=== PATIENT | female | born 1935 | race Caucasian/White ===

== ENCOUNTER 2019-04-14 10:50 | Inpatient (IN) | payer BC, MEDICARE ==
[2019-04-14] VITALS (10 sets, daily range): BP systolic 127–160; BP diastolic 41–58
[~2019-04-14] VITALS: Ht 170.2 cm; Wt 86.0 kg
[2019-04-14] MEDS ORDERED: TRAN2TAB16 PO (12:03)
[2019-04-14] MEDS ORDERED: OSEL75CA PO (12:03)
[2019-04-14] MEDS ORDERED: METO50TA6 PO (12:03)
[2019-04-14] MEDS ORDERED: VALS320T2 PO (12:03)
[2019-04-14] MEDS ORDERED: WARF3TAB50 PO (12:03)
[2019-04-14] MEDS ORDERED: AZIT250T PO (12:03)
[2019-04-14] MEDS ORDERED: AMLO10TA4 PO (12:03)
[2019-04-14] MEDS ORDERED: SIMV20TA18 PO (12:03)
[2019-04-14 12:17] LABS: BASO # 0.1 x10^3/uL (0.0-0.2); BASO % 2 % (0-3); EOS # 0.1 x10^3/uL (0.0-0.7); EOS % 1 % (0-3); HEMATOCRIT 26.1 % (36.0-47.0); HEMOGLOBIN 7.4 g/dL (12.0-15.5); LYMPH # 1.1 x10^3/uL (1.0-4.8); LYMPH % 22 % (24-48); MEAN CORPUSCULAR HEMOGLOBIN 19 pg (25-35); MEAN CORPUSCULAR HGB CONC 28 g/dL (31-37); MEAN CORPUSCULAR VOLUME 67 fL (79-100); MONO # 0.8 x10^3/uL (0.0-1.1); MONO % 16 % (0-9); NEUT # 2.9 x10^3uL (1.8-7.7); NEUT % 59 % (31-73); PLATELET COUNT 209 x10^3/uL (140-400); RED CELL DISTRIBUTION WIDTH 19.4 % (11.5-14.5); WHITE BLOOD COUNT 4.9 x10^3/uL (4.0-11.0)
[2019-04-14 12:41] LABS: ALBUMIN/GLOBULIN RATIO 0.7 (1.0-1.7); CALCIUM 9.9 mg/dL (8.5-10.1); CREATININE 1.6 mg/dL (0.6-1.0); GFR 30.8; POTASSIUM 4.5 mmol/L (3.5-5.1); TOTAL BILIRUBIN 0.8 mg/dL (0.2-1.0); TOTAL PROTEIN 7.1 g/dL (6.4-8.2)
[2019-04-14 13:35] LABS: ANISOCYTOSIS SLIGHT; HYPOCHROMIA MARKED; PLT ESTIMATE ADEQUATE (ADEQUATE); POLYCHROMASIA PRESENT
[2019-04-14 13:36] LABS: MICROCYTOSIS MOD; OVALOCYTES PRESENT; SCHISTOCYTES OCC; TARGET CELLS PRESENT
[2019-04-14 13:51] LABS: SEDIMENTATION RATE 37 (0-25)
--- NOTE | 2019-04-14 13:57 | NUR ---
NURSING NOTE ADMIT PT DIRECT ADMIT TO ROOM [address]UÑEZ WITH THE DX OF ANEMIA AND HEART FAILURE. PT HAD LABS DONE IN THE OFFICE ON 04-13-2019 AND WAS TOLD TO COME TO THE HOSPITAL. PT IS X1 STAND BY ASSIST. PT REPORTS THAT SHE LIVES HOME ALONE BUT HAS A FRIEND MIKE THAT CHECKS ON HER. ALSO HAS A DAUGHTER LIZANDRO THAT SHE SPEAKS WITH. PT HEART RATE WAS BACK AND FORTH 30'S AND 40'S WHEN SHE GOT TO THE FLOOR. HIGHEST HAS BEEN ABOUT 58. PT CURRENTLY 46 ON THE MONITOR. SPOKE WITH DR NUÑEZ. EKG, ECHO, AND ORTHOSTATICS ORDERED. PT IS TO BE TRANSFERRED TO ICU FOR CLOSER MONITORING. PT TAKES A BETA-GIRISH AND IS NONCOMPLIANT WITH HER FOLLOW UP CARE. MEDS HELD AT THIS TIME PER DR NUÑEZ. PT BLOOD PRESSURE IS HIGH. ORDER FOR HYDRALAZINE OBTAINED. REPORT GIVEN TO PERLA MALAVE. PT CURRENTLY BEING MOVED TO ICU FOR CLOSER MONITORING. PERLA SILVA.
--- NOTE | 2019-04-14 14:36 | EKG ---
[address] [address] Test Date: 2019-04-14 Test Time: 14:16:26 Pat Name: THALIA WOODWARD Department: Room: 123 A Gender: F Foundry Worker General: Aletha : 1935 Requested By: JERICHO NUÑEZ Order Number: [id number] Reading MD: Measurements Intervals Start Rate: 54 P: MN: QRS: 132 QRSD: 84 T: 166 QT: 496 QTc: 477 Interpretive Statements IRREGULAR RHYTHM, NO P-WAVE FOUND ABNORMAL RIGHT AXIS DEVIATION QRS(T) CONTOUR ABNORMALITY CONSISTENT WITH HIGH LATERAL INFARCT AGE UNDETERMINED ABNORMAL ECG RI6.02 No previous ECG available for comparison
--- NOTE | 2019-04-14 14:37 | NUR ---
NURSING NOTE CONSULT CONSULT TO DR PEREZ, HE IS HERE AND SPOKE WITH HIM. PERLA SILVA.
[2019-04-14] MEDS ORDERED: FUROSEMIDE 40 MG/4 ML VIAL IVP ONE (15:00)
--- NOTE | 2019-04-14 15:00 | NUR ---
Pt was transferred over from [address] [place] [address] to ICU, for bradycardia, CHF, anemia, R/o influenza. Pt saw Dr. Gonzales in his office yesterday was sob, weak, fatigue, he did FLU swab that is still pending, gave scripts for Tamiflu and Zithromax (neither have been started by patient). This RN called Dr. Gonzales's office to inquire about tamiflu. Pt does not present with any signs or symptoms of the FLU at this time. Dr. Gonzales requesting to start Tamiflu and Zithromax. Pt requires droplet precautions until we get results. Pt is in heart failure, pt has 4+ edema up to her thighs. Pt only sees Dr. Gonzales 1 time per year, but does get her coumadin level checked every month. Dr. William here to see pt. Reviewed poc with pt, she is in agreement. She verbalizes her worry about her edema. Will proceed with poc, will CTM
--- NOTE | 2019-04-14 15:04 | CONS ---
DATE OF CONSULTATION: 04/14/2019 REASON FOR CONSULTATION: Heart failure. HISTORY OF PRESENT ILLNESS: The patient is an 83-year-old woman with extremely difficult history. She is currently unclear as to the reason for her admission and most of the information has been gathered from chart review and her medication list. She apparently was in her usual state of health and went to the primary care physician's office for routine INR check and that she was advised to seek medical attention because of her heart failure symptoms. The patient currently denies any chest pain or dyspnea. She has lower extremity edema. She has no syncope or palpitations. She reports that she is on metoprolol therapy. She had some bradycardia while at the PCP's office and Cardiology was also asked to evaluate her regarding this. PAST MEDICAL HISTORY: 1. Presumed atrial fibrillation as she is currently atrial fibrillation on her EKG, on anticoagulation with Coumadin. 2. 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 Nonetheless, she is on anticoagulation with warfarin. 3. Hypertension. 4. Presumed chronic kidney disease with baseline creatinine 1.6. 5. Dyslipidemia. SOCIAL HISTORY: The patient has one daughter who lives in [place]. She currently denies any alcohol, tobacco or illicit drug use. FAMILY HISTORY: Noncontributory. ALLERGIES: CODEINE. CURRENT CARDIOVASCULAR MEDICATIONS: 1. Losartan 100 mg daily. 2. Lisinopril 20 mg daily. 3. Amlodipine 10 mg daily. 4. She has currently been started on Tamiflu. PHYSICAL EXAMINATION: VITAL SIGNS: Afebrile, 53, 18, 160/56, 93% on room air. GENERAL: She is alert and oriented to person, place and time. NEUROLOGIC: No focal deficits. MUSCULOSKELETAL: No obvious trauma. CARDIAC: Irregularly irregular without any obvious murmurs, rubs or gallops. LUNGS: Decreased breath sounds at the bases. LOWER EXTREMITIES: Significant 2+ pitting edema. DIAGNOSTIC STUDIES: Hemoglobin is decreased at 7.4. Creatinine 1.6. Troponin negative x 1. BNP elevated at 5586. INR 2.7. D-dimer negative. IMAGING: Currently pending. EKG demonstrates atrial fibrillation with a slow ventricular response at a heart rate of 58. IMPRESSION: 1. Probable acute on chronic diastolic or systolic heart failure. 2. Probable chronic kidney disease. 3. Chronic atrial fibrillation with a slow ventricular response without any current indications for pacemaker implantation. RECOMMENDATIONS: 1. Would stop her lisinopril and continue losartan only to avoid any further renal injury. 2. We will hold her metoprolol therapy for now and probably reinitiate at half dose tomorrow at 12.5 mg p.o. b.i.d. 3. Continue hydralazine, up titrate as blood pressure allows. 4. Unclear why she has been on the Tamiflu dosing, but defer to primary care physician. 5. Plan for echocardiogram and initiation of diuresis with Lasix. 6. Ok to hold warfarin. Consider outpt referral for watchman device given anemia. Thank you for this consultation. HEMALATHA PEREZ MD DR: CLIFFORD/aydin JOB#: [id number] / [id number] VIOLET
[2019-04-14] MEDS: hydrALAZINE 25 MG TABLET PO SCH ×2 (15:50→21:52)
--- NOTE | 2019-04-14 16:05 | RAD ---
AP and Lateral Views of the Chest 04/14/2019 11:57 AM Indication: Heart failure, shortness of breath Comparison: None Findings: Probable calcified granuloma noted in the right middle lobe. There are small bilateral pleural effusions left greater than right. Underlying atelectasis is present. Central vascular congestion and mild interstitial thickening, are present. No pneumothorax. No acute osseous changes are seen. IMPRESSION: Central vascular congestion, cardiomegaly, mild interstitial thickening, and small bilateral pleural effusions. Findings are consistent with provided history congestive heart failure. Electronically signed by: Jerzy Harris MD (04/14/2019 4:02 PM) [id number]
[2019-04-14] MEDS ORDERED: AZITHROMYCIN 250 MG TABLET. PO ONE (16:15)
[2019-04-14 17:52] LABS: FECAL OB PT NEGATIVE (NEG)
[2019-04-14 18:06] LABS: COLOR,URINE STRAW
[2019-04-14 18:07] LABS: BACTERIA,URINE MANY /HPF (0-FEW); BILIRUBIN,URINE NEG (NEG); CLARITY,URINE HAZY; GLUCOSE,URINE NEG (NEG); NITRITE,URINE NEG (NEG); RBC,URINE 0 /HPF (0-2); SQUAMOUS EPITHELIAL CELL,UR OCC /LPF; UROBILINOGEN,URINE 0.2 mg/dL (0.2 mg/dL)
[2019-04-14] MEDS ORDERED: LORazepam 0.5 MG TABLET PO PRN (18:30)
[2019-04-14] MEDS ORDERED: ACETAMINOPHEN 500 MG TABLET PO PRN (18:30)
[2019-04-14] MEDS ORDERED: OSELTAMIVIR 75 MG CAPSULE PO SCH (21:00)
[2019-04-14] MEDS: OSELTAMIVIR 30 MG CAPSULE PO SCH (21:51)
[2019-04-14] MEDS ORDERED: METHYL SALICYLATE/MENTHOL TOPICAL OINTMENT 57GM TUBE. TP PRN (22:00)
[2019-04-15] VITALS (25 sets, daily range): BP systolic 115–151; BP diastolic 40–69
[2019-04-15 02:06] LABS: HEMOGLOBIN A1C 5.8 % (4.8-5.6)
[2019-04-15 06:44] LABS: BASO # 0.1 x10^3/uL (0.0-0.2); BASO % 1 % (0-3); EOS # 0.2 x10^3/uL (0.0-0.7); EOS % 3 % (0-3); HEMATOCRIT 22.5 % (36.0-47.0); LYMPH # 1.7 x10^3/uL (1.0-4.8); LYMPH % 30 % (24-48); MEAN CORPUSCULAR HEMOGLOBIN 19 pg (25-35); MEAN CORPUSCULAR HGB CONC 30 g/dL (31-37); MEAN CORPUSCULAR VOLUME 66 fL (79-100); MONO # 0.9 x10^3/uL (0.0-1.1); MONO % 16 % (0-9); NEUT # 2.9 x10^3uL (1.8-7.7); NEUT % 51 % (31-73); PLATELET COUNT 164 x10^3/uL (140-400); RED BLOOD COUNT 3.42 x10^6/uL (3.50-5.40); RED CELL DISTRIBUTION WIDTH 19.1 % (11.5-14.5); WHITE BLOOD COUNT 5.7 x10^3/uL (4.0-11.0)
[2019-04-15 06:51] LABS: CALCIUM 9.4 mg/dL (8.5-10.1); CREATININE 1.6 mg/dL (0.6-1.0); GFR 30.8; POTASSIUM 4.3 mmol/L (3.5-5.1)
[2019-04-15 06:54] LABS: HEMOGLOBIN 6.6 g/dL (12.0-15.5)
[2019-04-15] MEDS: FERROUS SULFATE 325 MG TABLET. PO SCH (08:09)
[2019-04-15] MEDS: AZITHROMYCIN 250 MG TABLET. PO SCH (08:10)
[2019-04-15] MEDS: LOSARTAN 50 MG TABLET. PO SCH (08:10)
[2019-04-15] MEDS: hydrALAZINE 25 MG TABLET PO SCH ×3 (08:11→21:00)
[2019-04-15] MEDS: amLODIPine BESYLATE 10 MG TABLET PO SCH (08:11)
--- NOTE | 2019-04-15 08:14 | PDOC ---
CARDIO Progress Notes Date & Time Date of Service DATE: 04/15/19 TIME: 08:08 Time of Evaluation 08:08 Subjective Notes No chest pain, dizziness, diaphoresis. Feels tires, fatigued Vitals Vitals Vital Signs Date Time Temp Pulse Resp B/P (MAP) Pulse Ox O2 Delivery O2 Flow Rate FiO2 04/15/19 07:09 50 140/41 (74) 94 04/15/19 06:00 97.8 20 Nasal Cannula 2.0 Weight Weight [ ] Input and Output I.O. Intake and Output 04/15/19 07:00 Intake Total 980 ml Output Total 3101 ml Balance -2121 ml Intake Oral 980 ml Output Urine Total 3100 ml Stool Total 1 ml # Voids 1 Laboratory Labs Laboratory Tests Test 04/14/19 12:08 04/14/19 16:40 04/14/19 17:35 04/15/19 05:55 White Blood Count 4.9 x10^3/uL (4.0-11.0) 5.7 x10^3/uL (4.0-11.0) Red Blood Count 3.90 x10^6/uL (3.50-5.40) 3.42 x10^6/uL (3.50-5.40) Hemoglobin 7.4 g/dL (12.0-15.5) 6.6 g/dL (12.0-15.5) Hematocrit 26.1 % (36.0-47.0) 22.5 % (36.0-47.0) Mean Corpuscular Volume 67 fL (79-100) 66 fL (79-100) Mean Corpuscular Hemoglobin 19 pg (25-35) 19 pg (25-35) Mean Corpuscular Hemoglobin Concent 28 g/dL (31-37) 30 g/dL (31-37) Red Cell Distribution Width 19.4 % (11.5-14.5) 19.1 % (11.5-14.5) Platelet Count 209 x10^3/uL (140-400) 164 x10^3/uL (140-400) Neutrophils (%) (Auto) 59 % (31-73) 51 % (31-73) Lymphocytes (%) (Auto) 22 % (24-48) 30 % (24-48) Monocytes (%) (Auto) 16 % (0-9) 16 % (0-9) Eosinophils (%) (Auto) 1 % (0-3) 3 % (0-3) Basophils (%) (Auto) 2 % (0-3) 1 % (0-3) Neutrophils # (Auto) 2.9 x10^3uL (1.8-7.7) 2.9 x10^3uL (1.8-7.7) Lymphocytes # (Auto) 1.1 x10^3/uL (1.0-4.8) 1.7 x10^3/uL (1.0-4.8) Monocytes # (Auto) 0.8 x10^3/uL (0.0-1.1) 0.9 x10^3/uL (0.0-1.1) Eosinophils # (Auto) 0.1 x10^3/uL (0.0-0.7) 0.2 x10^3/uL (0.0-0.7) Basophils # (Auto) 0.1 x10^3/uL (0.0-0.2) 0.1 x10^3/uL (0.0-0.2) Platelet Estimate Adequate (ADEQUATE) Polychromasia Present Hypochromasia Marked Anisocytosis Slight Microcytosis Mod Macrocytosis Present Target Cells Present Ovalocytes Present Schistocytes Occ Erythrocyte Sedimentation Rate 37 (0-25) Prothrombin Time 28.2 SEC (9.4-11.4) Prothromb Time International Ratio 2.7 (0.9-1.1) D-Dimer (Delia) 0.40 mg/L (0.00-0.50) Sodium Level 144 mmol/L (136-145) 143 mmol/L (136-145) Potassium Level 4.5 mmol/L (3.5-5.1) 4.3 mmol/L (3.5-5.1) Chloride Level 111 mmol/L (98-107) 110 mmol/L (98-107) Carbon Dioxide Level 23 mmol/L (21-32) 25 mmol/L (21-32) Anion Gap 10 (6-14) 8 (6-14) Blood Urea Nitrogen 29 mg/dL (7-20) 29 mg/dL (7-20) Creatinine 1.6 mg/dL (0.6-1.0) 1.6 mg/dL (0.6-1.0) Estimated GFR (Cockcroft-Gault) 30.8 30.8 BUN/Creatinine Ratio 18 (6-20) Glucose Level 95 mg/dL (70-99) 79 mg/dL (70-99) Hemoglobin A1c 5.8 % (4.8-5.6) Lactic Acid Level 1.2 mmol/L (0.4-2.0) Calcium Level 9.9 mg/dL (8.5-10.1) 9.4 mg/dL (8.5-10.1) Total Bilirubin 0.8 mg/dL (0.2-1.0) Aspartate Amino Transf (AST/SGOT) 21 U/L (15-37) Alanine Aminotransferase (ALT/SGPT) 23 U/L (14-59) Alkaline Phosphatase 107 U/L (46-116) Creatine Kinase 36 U/L (26-192) Troponin I Quantitative < 0.017 ng/mL (0-0.055) UG-Ket-R-Type Natriuretic Peptide 5586 pg/mL (0-449) Total Protein 7.1 g/dL (6.4-8.2) Albumin 3.0 g/dL (3.4-5.0) Albumin/Globulin Ratio 0.7 (1.0-1.7) Urine Collection Type Unknown Urine Color Straw Urine Clarity Hazy Urine pH 6.0 Urine Specific [place] 1.015 Urine Protein Neg (NEG-TRACE) Urine Glucose (UA) Neg mg/dL (NEG) Urine Ketones (Stick) Neg mg/dL (NEG) Urine Blood Neg (NEG) Urine Nitrite Neg (NEG) Urine Bilirubin Neg (NEG) Urine Urobilinogen Dipstick 0.2 mg/dL (0.2 mg/dL) Urine Leukocyte Esterase Mod (NEG) Urine RBC 0 /HPF (0-2) Urine WBC 11-20 /HPF (0-4) Urine Squamous Epithelial Cells Occ /LPF Urine Bacteria Many /HPF (0-FEW) Stool Occult Blood Negative (NEG) Physical Exams HEENT: Neck Supple W Full Motion Chest: Symmetric Lungs: Other (bibasilar crackles ) Heart: S1S2, irregularly irregular Abdomen: Soft N/T Extremities: Other (trace bilateral LE edema) Neurology: alert, follow commands Assessment Assessment 1. Acute on chronic CHF 2. AFIB; with slow ventricular response. Metoprolol has been held 3. Anemia; hgb drift to 6.6. No obvious bleeding 4. 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 5. Hypertension. 6. CKD: Cr stable 7. Dyslipidemia. 8. pulm HTN PAP 77 mmHg 9. Moderate to severe TR and moderate MR posteriorly directed. Recommendations To be transfused Lasix following transfusion Ok to hold warfarin given anemia. Consider outpt referral for watchman device given anemia. Outpatient event monitor Will arrange follow up in our office. MANA GAY APRN Apr 15, 2019 08:13
[2019-04-15] MEDS: OSELTAMIVIR 30 MG CAPSULE PO SCH ×2 (08:43→21:21)
--- NOTE | 2019-04-15 08:45 | NUR ---
NURSING NOTE PT WAS IN HER BED THIS AM UPON ASSESSMENT AND MEDICATION ADMINISTRATION. PT WAS A&O THIS AM. PT HAS PITTING EDEMA IN HER BLE. PT IS FOLLOW BY CARDIOLOGY AND WAS SEEN THIS AM BY MANA AND BEING TREATED WITH LASIX IV. ECHO IS ORDERED. PT WAS PUT ON 2 L OF OXYGEN AT NIGHT TO MAINTAIN OXYGEN SATURATION IN 90'S. TOOK PT OFF THIS AM AND CURRENTLY 93% RA. PT LABS THIS AM CAME BACK CRITICAL HGB AT 6.[address] NUÑEZ NOTIFIED BY NIGHT RN. 1 UNIT OF PRBC ORDERED. PT EDUCATED ABOUT ANEMIA AND NUTRITION IMPORTANCE WELL HEALTHY DIET. PT SPOKE WITH DR NUÑEZ THIS AM STATED THAT SHE DOES NOT EAT HEALTHY AND MOSTLY EATS JUNK FOOD. PHONED DR NUÑEZ OFFICE TO CHECK ON FLU SWAB RESULTS, LAX[facility] WILL CALL BACK WITH RESULTS. WILL CONTINUE TO MONITOR. PERLA SILVA.
[2019-04-15] MEDS ORDERED: LISINOPRIL 20 MG TABLET PO SCH (09:00)
--- NOTE | 2019-04-15 09:57 | NUR ---
NURSING NOTE CONSULT SPOKE WITH PT DAUGHTER WHO VOICED CONCERN FOR PT'S ANXIETY LEVEL STATING "SHE IS ALWAYS WOUND UP AND WORRIED ABOUT EVERYTHING". SPOKE WITH DR NUÑEZ ABOUT CONCERNS, CONSULT FOR DR MARISA ABARCA AND TREAT FAXED. PERLA SILVA.
--- NOTE | 2019-04-15 11:26 | NUR ---
NURSING NOTE BLOOD BLOOD TRANSFUSION STARTED AT 0910. TUBING PRIMED WITH NORMAL SALINE & THEN PRIMED WITH BLOOD. TRANSFUSION STARTED AT 25ML/HR, PT MONITORED CLOSELY X15 MIN. NO REACTION NOTED. TRANSFUSION INCREASED TO 125MG/HR. VITALS MONITORED. SEE TRANSFUSION. NO COMPLICATIONS. PERLA SILVA.
[2019-04-15] MEDS ORDERED: FUROSEMIDE 40 MG/4 ML VIAL IVP ONE (11:45)
--- NOTE | 2019-04-15 11:46 | NUR ---
NURSING NOTE LASIX PER MANA, GIVE PT 40 MG LASIX IVP AFTER BLOOD TRANSFUSION. ORDERS PUT IN. PERLA SILVA.
--- NOTE | 2019-04-15 12:25 | NUR ---
NURSING NOTE INFLUENZA RESULTS POSITIVE PT HAD SWAB DONE IN PHYSICIAN OFFICE FOR FLU ON 04/13/2019. RESULTS FAXED TO US TODAY 04/15/2019 ARE POSITIVE. PT IS ALREADY IN ISOLATION AND BEING TREATED WITH TAMIFLU. WILL CONTINUE TO MONITOR. PERLA SILVA.
--- NOTE | 2019-04-15 12:53 | NUR ---
IP: patient has + flu test, requires droplet precautions until treatment for 5 days and no fever x 24 hours, whichever is longer.
[2019-04-15 13:33] LABS: BASO # 0.1 x10^3/uL (0.0-0.2); BASO % 1 % (0-3); EOS # 0.1 x10^3/uL (0.0-0.7); EOS % 1 % (0-3); LYMPH # 1.2 x10^3/uL (1.0-4.8); LYMPH % 19 % (24-48); MEAN CORPUSCULAR HEMOGLOBIN 21 pg (25-35); MEAN CORPUSCULAR HGB CONC 30 g/dL (31-37); MEAN CORPUSCULAR VOLUME 68 fL (79-100); MONO % 16 % (0-9); NEUT # 4.1 x10^3uL (1.8-7.7); NEUT % 63 % (31-73); PLATELET COUNT 176 x10^3/uL (140-400); RED BLOOD COUNT 3.94 x10^6/uL (3.50-5.40); RED CELL DISTRIBUTION WIDTH 21.5 % (11.5-14.5); WHITE BLOOD COUNT 6.5 x10^3/uL (4.0-11.0)
[2019-04-15 13:36] LABS: HEMATOCRIT 26.9 % (36.0-47.0); HEMOGLOBIN 8.1 g/dL (12.0-15.5)
--- NOTE | 2019-04-15 14:05 | CARD ---
MR#: [id number] Date of Study: 04/15/2019 Ordering Physician: HEMALATHA PEREZ, Referring Physician: HEMALATHA PEREZ, Tech: Blossom Byrnes APPROVED REPORT EXAM: Two-dimensional and M-mode echocardiogram with Doppler and color Doppler. Other Information Quality : AverageHR: 55bpm INDICATION Congestive Heart Failure RISK FACTORS Hypertension Hyperlipidemia 2D DIMENSIONS RVDd4.7 (2.9-3.5cm)Left Atrium(2D)5.2 (1.6-4.0cm) IVSd0.7 (0.7-1.1cm)Aortic Root(2D)2.9 (2.0-3.7cm) LVDd6.0 (3.9-5.9cm)LVOT Diameter1.9 (1.8-2.4cm) PWd1.0 (0.7-1.1cm)LVDs3.6 (2.5-4.0cm) FS (%) 40.5 %SV126.8 ml LVEF(%)70.4 (>50%) Aortic Valve AoV Peak Lonnie.192.2cm/sAoV VTI41.6cm AO Peak GR.14.8mmHgLVOT Peak Lonnie.137.7cm/s LVOT VTI 35.00cmAO Mean GR.7mmHg MEGHAN (VMAX)2.21ae1ZXN (VTI)2.35cm2 Mitral Valve MV E Hgnnbnwb130.7cm/sMV E Peak Gr.128mmHg MV DECEL [id number] A Dtbmfkfm80.4cm/s MV E Mean Gr.4mmHgE/A Ratio2.2 Pulmonary Valve PV Peak Rwimoawv609.3cm/sPV Peak Grad.5mmHg Tricuspid Valve TR P. Raxsmjso614ec/sRAP DCEMEXUL41xjZx TR Peak Gr.76mvObBXMY65wsOh Pulmonary Vein S1 Bjtgrtvl91.5cm/sD2 Gqmnjkfj14.1cm/s LEFT VENTRICLE The left ventricle is normal size. There is normal left ventricular wall thickness. The left ventricu lar systolic function is normal. The Ejection Fraction is 60%. There is normal LV segmental wall timmy on. RIGHT VENTRICLE The right ventricle is mildly dilated. There is normal right ventricular wall thickness. The right ve ntricular systolic function is normal. ATRIA The left atrium is moderately dilated. The right atrium is moderately dilated. The interatrial septum is intact with no evidence for an atrial septal defect or patent foramen ovale as noted on 2-D or Do ppler imaging. AORTIC VALVE The aortic valve is normal in structure and function. Doppler and Color Flow revealed trace aortic re gurgitation. There is no significant aortic valvular stenosis. MITRAL VALVE The mitral valve is normal in structure and function. There is no evidence of mitral valve prolapse. There is no mitral valve stenosis. Doppler and Color-flow revealed moderate eccentric posteriorily di rected mitral regurgitation. TRICUSPID VALVE The tricuspid valve is normal in structure and function. Doppler and Color Flow revealed moderate to severe tricuspid regurgitation with an estimated PAP of 77 mmHg. There is no tricuspid valve stenosis . PULMONIC VALVE The pulmonary valve is normal in structure and function. Doppler and Color Flow revealed trace pulmon ic valvular regurgitation. GREAT VESSELS The aortic root is normal in size. The ascending aorta is normal in size. The IVC is dilated and hoa apses <50%. PERICARDIAL EFFUSION There is a small circumferential pericardial effusion. Critical Notification Critical Value: No <Conclusion> The left ventricular systolic function is normal. The Ejection Fraction is 60%. There is normal LV segmental wall motion. Moderate eccentric posteriorily directed mitral regurgitation. Moderate to severe tricuspid regurgitation with an estimated PAP of 77 mmHg. There is a small circumferential pericardial effusion. Signed by : Mir Jones, Electronically Approved : 04/15/2019 14:05:28
[2019-04-16] VITALS (12 sets, daily range): BP systolic 132–160; BP diastolic 42–72
--- NOTE | 2019-04-16 03:57 | NUR ---
Pt with frequent 5-10 second periods of apnea while sleeping. Pt wearing 2L O2 via NC to maintain sats >90% throughout noc. Pt denies history of sleep apnea or prior sleep study.
[2019-04-16 06:31] LABS: BASO # 0.1 x10^3/uL (0.0-0.2); BASO % 1 % (0-3); EOS # 0.2 x10^3/uL (0.0-0.7); EOS % 3 % (0-3); HEMATOCRIT 24.9 % (36.0-47.0); HEMOGLOBIN 7.4 g/dL (12.0-15.5); LYMPH # 1.4 x10^3/uL (1.0-4.8); LYMPH % 21 % (24-48); MEAN CORPUSCULAR HEMOGLOBIN 21 pg (25-35); MEAN CORPUSCULAR HGB CONC 30 g/dL (31-37); MEAN CORPUSCULAR VOLUME 69 fL (79-100); MONO # 1.1 x10^3/uL (0.0-1.1); MONO % 17 % (0-9); NEUT # 3.8 x10^3uL (1.8-7.7); NEUT % 58 % (31-73); PLATELET COUNT 141 x10^3/uL (140-400); RED BLOOD COUNT 3.62 x10^6/uL (3.50-5.40); RED CELL DISTRIBUTION WIDTH 21.7 % (11.5-14.5); WHITE BLOOD COUNT 6.5 x10^3/uL (4.0-11.0)
[2019-04-16 06:41] LABS: ALBUMIN 2.6 g/dL (3.4-5.0); ALBUMIN/GLOBULIN RATIO 0.7 (1.0-1.7); CREATININE 1.5 mg/dL (0.6-1.0); GFR 33.2; POTASSIUM 4.2 mmol/L (3.5-5.1); TOTAL PROTEIN 6.1 g/dL (6.4-8.2)
--- NOTE | 2019-04-16 07:45 | PN ---
DATE: 04/15/2019 SUBJECTIVE: An 83-year-old female in with congestive heart failure and anemia, iron deficiency. The patient is resting fairly comfortably, making fairly good progress, seems a little bit better with diuresis. The patient's ejection fraction looks good of roughly 60% and so that is holding its own. OBJECTIVE: GENERAL: Otherwise, the patient is very talkative, very anxious, bipolar-like. VITAL SIGNS: Blood pressure 130/40, respiratory rate 23, pulse is up in the 60s and temperature is afebrile, 95% oxygen saturation. The patient is alert and oriented, much more active. She has had another unit of packed RBCs and hemoglobin came up to 8.1 and 26, otherwise will continue to be monitored. 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 She may need to be taken off that if she has any type of bleeding problem, although so far, her fecal stools have been negative. Her BUN and creatinine are 29 and 1.6. A1c of 5.8. TSH was basically stable. The patient did have an elevated BNP. In any case, the patient is making good progress overall and will continue to be monitored. The patient is alert and oriented. LUNGS: Diminished, some rales in the bases, but clearer than they have been. CARDIOVASCULAR: Regular sinus rhythm. ABDOMEN: Soft. EXTREMITIES: No clubbing, cyanosis, +1 to 2 pitting edema. NEUROLOGIC: Alert and oriented. There is some memory deficits noted with this patient also has a strong situation of a problem with memory and some forms of anxiety. 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 PLAN: The patient may need to go ahead and give her another avenue for possible blood clots, if she continues with her atrial fibrillation, so as not to be on a blood thinner and make further evaluation along with Cardiology. JERICHO NUÑEZ MD DR: ISIDRO/aydin JOB#: [id number] / [id number]
--- NOTE | 2019-04-16 08:13 | PDOC ---
CARDIO Progress Notes Date & Time Date of Service DATE: 04/16/19 TIME: 08:13 Time of Evaluation 08:13 Subjective Notes No chest pain, palpitations, dizziness, diaphoresis Vitals Vitals Vital Signs Date Time Temp Pulse Resp B/P (MAP) Pulse Ox O2 Delivery O2 Flow Rate FiO2 04/16/19 07:10 98.4 52 18 135/45 (75) 94 Nasal Cannula 2.0 Weight Weight [ ] Input and Output I.O. Intake and Output 04/16/19 07:00 Intake Total 890 ml Output Total 4200 ml Balance -3310 ml Intake Oral 890 ml Output Urine Total 4200 ml Laboratory Labs Laboratory Tests Test 04/14/19 12:08 04/14/19 16:40 04/14/19 17:35 04/15/19 05:55 White Blood Count 4.9 x10^3/uL (4.0-11.0) 5.7 x10^3/uL (4.0-11.0) Red Blood Count 3.90 x10^6/uL (3.50-5.40) 3.42 x10^6/uL (3.50-5.40) Hemoglobin 7.4 g/dL (12.0-15.5) 6.6 g/dL (12.0-15.5) Hematocrit 26.1 % (36.0-47.0) 22.5 % (36.0-47.0) Mean Corpuscular Volume 67 fL (79-100) 66 fL (79-100) Mean Corpuscular Hemoglobin 19 pg (25-35) 19 pg (25-35) Mean Corpuscular Hemoglobin Concent 28 g/dL (31-37) 30 g/dL (31-37) Red Cell Distribution Width 19.4 % (11.5-14.5) 19.1 % (11.5-14.5) Platelet Count 209 x10^3/uL (140-400) 164 x10^3/uL (140-400) Neutrophils (%) (Auto) 59 % (31-73) 51 % (31-73) Lymphocytes (%) (Auto) 22 % (24-48) 30 % (24-48) Monocytes (%) (Auto) 16 % (0-9) 16 % (0-9) Eosinophils (%) (Auto) 1 % (0-3) 3 % (0-3) Basophils (%) (Auto) 2 % (0-3) 1 % (0-3) Neutrophils # (Auto) 2.9 x10^3uL (1.8-7.7) 2.9 x10^3uL (1.8-7.7) Lymphocytes # (Auto) 1.1 x10^3/uL (1.0-4.8) 1.7 x10^3/uL (1.0-4.8) Monocytes # (Auto) 0.8 x10^3/uL (0.0-1.1) 0.9 x10^3/uL (0.0-1.1) Eosinophils # (Auto) 0.1 x10^3/uL (0.0-0.7) 0.2 x10^3/uL (0.0-0.7) Basophils # (Auto) 0.1 x10^3/uL (0.0-0.2) 0.1 x10^3/uL (0.0-0.2) Platelet Estimate Adequate (ADEQUATE) Polychromasia Present Hypochromasia Marked Anisocytosis Slight Microcytosis Mod Macrocytosis Present Target Cells Present Ovalocytes Present Schistocytes Occ Erythrocyte Sedimentation Rate 37 (0-25) Prothrombin Time 28.2 SEC (9.4-11.4) Prothromb Time International Ratio 2.7 (0.9-1.1) D-Dimer (Delia) 0.40 mg/L (0.00-0.50) Sodium Level 144 mmol/L (136-145) 143 mmol/L (136-145) Potassium Level 4.5 mmol/L (3.5-5.1) 4.3 mmol/L (3.5-5.1) Chloride Level 111 mmol/L (98-107) 110 mmol/L (98-107) Carbon Dioxide Level 23 mmol/L (21-32) 25 mmol/L (21-32) Anion Gap 10 (6-14) 8 (6-14) Blood Urea Nitrogen 29 mg/dL (7-20) 29 mg/dL (7-20) Creatinine 1.6 mg/dL (0.6-1.0) 1.6 mg/dL (0.6-1.0) Estimated GFR (Cockcroft-Gault) 30.8 30.8 BUN/Creatinine Ratio 18 (6-20) Glucose Level 95 mg/dL (70-99) 79 mg/dL (70-99) Hemoglobin A1c 5.8 % (4.8-5.6) Lactic Acid Level 1.2 mmol/L (0.4-2.0) Calcium Level 9.9 mg/dL (8.5-10.1) 9.4 mg/dL (8.5-10.1) Iron Level 11 ug/dL (50-170) Total Iron Binding Capacity 365 ug/dL (250-450) Iron Saturation 3 % (15-34) Total Bilirubin 0.8 mg/dL (0.2-1.0) Aspartate Amino Transf (AST/SGOT) 21 U/L (15-37) Alanine Aminotransferase (ALT/SGPT) 23 U/L (14-59) Alkaline Phosphatase 107 U/L (46-116) Creatine Kinase 36 U/L (26-192) Troponin I Quantitative < 0.017 ng/mL (0-0.055) BA-Iwy-W-Type Natriuretic Peptide 5586 pg/mL (0-449) Total Protein 7.1 g/dL (6.4-8.2) Albumin 3.0 g/dL (3.4-5.0) Albumin/Globulin Ratio 0.7 (1.0-1.7) Vitamin B12 Level 848 pg/mL (247-911) Procalcitonin < 0.10 ng/mL (0.00-0.10) Thyroid Stimulating Hormone (TSH) 3.858 uIU/mL (0.358-3.740) Urine Collection Type Unknown Urine Color Straw Urine Clarity Hazy Urine pH 6.0 Urine Specific [place] 1.015 Urine Protein Neg (NEG-TRACE) Urine Glucose (UA) Neg mg/dL (NEG) Urine Ketones (Stick) Neg mg/dL (NEG) Urine Blood Neg (NEG) Urine Nitrite Neg (NEG) Urine Bilirubin Neg (NEG) Urine Urobilinogen Dipstick 0.2 mg/dL (0.2 mg/dL) Urine Leukocyte Esterase Mod (NEG) Urine RBC 0 /HPF (0-2) Urine WBC 11-20 /HPF (0-4) Urine Squamous Epithelial Cells Occ /LPF Urine Bacteria Many /HPF (0-FEW) Stool Occult Blood Negative (NEG) Test 04/15/19 13:24 04/16/19 05:47 White Blood Count 6.5 x10^3/uL (4.0-11.0) 6.5 x10^3/uL (4.0-11.0) Red Blood Count 3.94 x10^6/uL (3.50-5.40) 3.62 x10^6/uL (3.50-5.40) Hemoglobin 8.1 g/dL (12.0-15.5) 7.4 g/dL (12.0-15.5) Hematocrit 26.9 % (36.0-47.0) 24.9 % (36.0-47.0) Mean Corpuscular Volume 68 fL (79-100) 69 fL (79-100) Mean Corpuscular Hemoglobin 21 pg (25-35) 21 pg (25-35) Mean Corpuscular Hemoglobin Concent 30 g/dL (31-37) 30 g/dL (31-37) Red Cell Distribution Width 21.5 % (11.5-14.5) 21.7 % (11.5-14.5) Platelet Count 176 x10^3/uL (140-400) 141 x10^3/uL (140-400) Neutrophils (%) (Auto) 63 % (31-73) 58 % (31-73) Lymphocytes (%) (Auto) 19 % (24-48) 21 % (24-48) Monocytes (%) (Auto) 16 % (0-9) 17 % (0-9) Eosinophils (%) (Auto) 1 % (0-3) 3 % (0-3) Basophils (%) (Auto) 1 % (0-3) 1 % (0-3) Neutrophils # (Auto) 4.1 x10^3uL (1.8-7.7) 3.8 x10^3uL (1.8-7.7) Lymphocytes # (Auto) 1.2 x10^3/uL (1.0-4.8) 1.4 x10^3/uL (1.0-4.8) Monocytes # (Auto) 1.0 x10^3/uL (0.0-1.1) 1.1 x10^3/uL (0.0-1.1) Eosinophils # (Auto) 0.1 x10^3/uL (0.0-0.7) 0.2 x10^3/uL (0.0-0.7) Basophils # (Auto) 0.1 x10^3/uL (0.0-0.2) 0.1 x10^3/uL (0.0-0.2) Sodium Level 142 mmol/L (136-145) Potassium Level 4.2 mmol/L (3.5-5.1) Chloride Level 108 mmol/L (98-107) Carbon Dioxide Level 25 mmol/L (21-32) Anion Gap 9 (6-14) Blood Urea Nitrogen 29 mg/dL (7-20) Creatinine 1.5 mg/dL (0.6-1.0) Estimated GFR (Cockcroft-Gault) 33.2 BUN/Creatinine Ratio 19 (6-20) Glucose Level 82 mg/dL (70-99) Calcium Level 9.0 mg/dL (8.5-10.1) Total Bilirubin 1.0 mg/dL (0.2-1.0) Aspartate Amino Transf (AST/SGOT) 19 U/L (15-37) Alanine Aminotransferase (ALT/SGPT) 20 U/L (14-59) Alkaline Phosphatase 88 U/L (46-116) Total Protein 6.1 g/dL (6.4-8.2) Albumin 2.6 g/dL (3.4-5.0) Albumin/Globulin Ratio 0.7 (1.0-1.7) Physical Exams HEENT: Neck Supple W Full Motion Chest: Symmetric Lungs: Other (diminished bases) Heart: S1S2, irregularly irregular Abdomen: Soft N/T Extremities: Other (trace bilateral LE edema) Neurology: alert, follow commands Assessment Assessment 1. Acute on chronic CHF; better compensated following diuresis 2. AFIB; with slow ventricular response. Metoprolol has been held. Mild bradycardic in the night, otherwise, rate in 70-80 at rest, 3. Anemia; s/p 1 unit PRBCs. No obvious bleeding. Hgb up to 8.1 and has drifted to 7.4 this morning 4. 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 5. Hypertension; controlled 6. CKD: Cr stable 7. Dyslipidemia. 8. pulm HTN PAP 77 mmHg 9. Moderate to severe TR and moderate MR posteriorly directed. 10. Influenza A+. tested at PCP office prior to arrival. Recommendations Mild diuresis Add PPI Warfarin on hold given anemia. Will resume metoprolol 12.5mg and monitor for any further significant bradycardia Outpatient event monitor discussed, but patient declined. Consider outpt referral for watchman device Needs GI evaluation; patient declining EGD. Follow up in our office with Dr. William as scheduled. MANA GAY APRN Apr 16, 2019 08:13
[2019-04-16] MEDS: LACTOBACILLUS RHAMNOSUS GG 1 CAPSULE. PO SCH ×2 (08:26→21:34)
[2019-04-16] MEDS: AZITHROMYCIN 250 MG TABLET. PO SCH (08:26)
[2019-04-16] MEDS: amLODIPine BESYLATE 10 MG TABLET PO SCH (08:26)
[2019-04-16] MEDS: hydrALAZINE 25 MG TABLET PO SCH ×3 (08:26→21:35)
[2019-04-16] MEDS: OSELTAMIVIR 30 MG CAPSULE PO SCH ×2 (08:26→21:35)
[2019-04-16] MEDS: FERROUS SULFATE 325 MG TABLET. PO SCH (08:26)
[2019-04-16] MEDS: LOSARTAN 50 MG TABLET. PO SCH (08:27)
--- NOTE | 2019-04-16 11:19 | PN ---
DATE: SUBJECTIVE: An 83-year-old female in with acute congestive heart failure. The patient has mild dementia overall, the patient's hemoglobin did drop again this morning, here for a possible GI bleed. The patient will get an upper GI with small bowel follow through. She refuses due to an EGD. Recommended she get that as well as a colonoscopy. She refused. The patient otherwise seems to be resting fairly comfortably as far as breathing [place] but she does look pale again, was started on Protonix, Carafate. The patient's Hemoccults have been negative; however, obviously there has been a drop in her hemoglobin. The patient had a low thyroid. She is somewhat bradycardic. OBJECTIVE: VITAL SIGNS: Blood pressure is 135/45, respiratory rate 20, pulse 52, afebrile. GENERAL: The patient is alert and oriented. LUNGS: Diminished throughout, but basically clear. CARDIOVASCULAR: Regular sinus rhythm. ABDOMEN: Soft, protuberant, nontender. EXTREMITIES: No clubbing, cyanosis or edema. NEUROLOGIC: Intact. We will go ahead and continue on present drug regimen. Start with PT, OT and get this upper GI with small bowel through as the patient again refuses any type of scope evaluation or transfer down to [place] at this time. IMPRESSION: Acute on top of chronic diastolic heart failure, acute gastrointestinal bleed, anemia secondary to gastrointestinal bleed, mild dementia, bradycardia, iron deficiency anemia, possible cellulitis to her left antecubital area as well as pulmonary hypertension and moderate mitral regurgitation. JERICHO NUÑEZ MD DR: ISIDRO/aydin JOB#: [id number] / [id number]
[2019-04-16] MEDS ORDERED: SUCRALFATE 1 GM TABLET. PO ONE (11:30)
[2019-04-16] MEDS: LEVOTHYROXINE 50 MCG TABLET PO SCH (11:30)
[2019-04-16] MEDS: FUROSEMIDE 40 MG TABLET PO SCH (11:30)
[2019-04-16] MEDS: PANTOPRAZOLE 40 MG TABLET. PO SCH (11:30)
[2019-04-16] MEDS ORDERED: VANCOMYCIN PER PHARMACY MC PRN (14:15)
[2019-04-16] MEDS: MUPIROCIN 2% TOPICAL OINTMENT 22GM TUBE. TP SCH ×2 (14:26→21:36)
[2019-04-16] MEDS: METOPROLOL TART IMMED RELEASE 25 MG TABLET PO SCH ×2 (14:26→21:35)
[2019-04-16] MEDS ORDERED: VANCOMYCIN 2 GM in IV NORMAL SALINE 500ML 500 ML IV ONE (15:00)
[2019-04-16] MEDS ORDERED: HEPARIN for NUC MED 500 UNIT/5 ML DISP.SYRIN. IV ONE (15:30)
--- NOTE | 2019-04-16 15:55 | NUR ---
Pharmacy Vancomycin Dosing Note S:Consulted to monitor and dose vancomycin started 04/16/19. O:THALIA WOODWARD is a 83 year old F with Cellulitis, . Height: 5 feet, 7 inches Weight: 85.744931 kg [place] Body Weight: 61.60 Adjusted Body Weight: 71.36 Dosing Weight: Other Antibiotics: AZITHROMYCIN LABS: Last BUN: 29 Last Creatinine: 1.5 Creatinine Clearance: 32 Last WBC: 6.5 Last Procalcitonin: 0.1 Tmax (past 24 hours): Microbiology: I/O: Drug Levels: Last level: on at Last dose given at Vancomycin Dosing: Loading Dose: 2000 mg x1 Dosing Weight: Target Trough: 10-20 A: Based on: physician request for pharmacy to dose P: 1. Begin Vancomycin 2000mg loading dose, then 1250 mg IV q24h 2. Follow up Trough level on 04/18/19 at 1530 (before 3rd dose) 3. Pharmacy will continue to monitor, follow and adjust therapy as needed. ZAHRA HAMPTON, 04/16/19 [id number]
--- NOTE | 2019-04-16 16:17 | RAD ---
Left upper extremity venous duplex study Clinical History: Left upper extremity pain and edema Technique: Using a combination of real time ultrasound imaging and color-flow and pulse Doppler imaging techniques, including spectral analysis, graded compression and augmentation, duplex evaluation of the deep venous system of the left upper extremity was performed. Multiple images were obtained. Findings: There is no sonographic evidence of deep venous thrombosis involving the visualized deep venous structures of the left upper extremity Impression: No evidence of deep venous thrombosis involving the left upper extremity Electronically signed by: Jerzy Harris MD (04/16/2019 4:15 PM) [id number]
--- NOTE | 2019-04-16 17:41 | RAD ---
Examination: GI BLEED History: Bloody stools Comparison/Correlation: None Findings: 30 mCi technetium 99m UltraTag was utilized for GI bleed scan. Imaging was performed up to 53 minutes. There is normal distribution of radiotracer. No abnormal accumulation of radiotracer to suggest active GI bleeding identified. Impression: No active GI bleed. Electronically signed by: Brant Jj MD (04/16/2019 5:38 PM) [id number]
[2019-04-16] MEDS ORDERED: METOPROLOL TART IMMED RELEASE 25 MG TABLET PO SCH (21:00)
[2019-04-17 02:53] VITALS: BP 146/49
[2019-04-17] MEDS: LEVOTHYROXINE 50 MCG TABLET PO SCH (06:16)
[2019-04-17 06:23] LABS: BASO # 0.1 x10^3/uL (0.0-0.2); BASO % 2 % (0-3); EOS # 0.2 x10^3/uL (0.0-0.7); EOS % 3 % (0-3); HEMATOCRIT 25.8 % (36.0-47.0); HEMOGLOBIN 7.4 g/dL (12.0-15.5); LYMPH # 1.3 x10^3/uL (1.0-4.8); LYMPH % 22 % (24-48); MEAN CORPUSCULAR HEMOGLOBIN 20 pg (25-35); MEAN CORPUSCULAR HGB CONC 29 g/dL (31-37); MEAN CORPUSCULAR VOLUME 70 fL (79-100); MONO % 18 % (0-9); NEUT # 3.3 x10^3uL (1.8-7.7); NEUT % 56 % (31-73); PLATELET COUNT 152 x10^3/uL (140-400); RED BLOOD COUNT 3.72 x10^6/uL (3.50-5.40); RED CELL DISTRIBUTION WIDTH 21.2 % (11.5-14.5); WHITE BLOOD COUNT 5.8 x10^3/uL (4.0-11.0)
[2019-04-17 06:28] VITALS: BP 128/46
[2019-04-17 06:34] LABS: CALCIUM 9.1 mg/dL (8.5-10.1); CREATININE 1.4 mg/dL (0.6-1.0); GFR 35.9
[2019-04-17] MEDS: LACTOBACILLUS RHAMNOSUS GG 1 CAPSULE. PO SCH (09:21)
[2019-04-17] MEDS: FUROSEMIDE 40 MG TABLET PO SCH (09:21)
[2019-04-17] MEDS: AZITHROMYCIN 250 MG TABLET. PO SCH (09:21)
[2019-04-17] MEDS: hydrALAZINE 25 MG TABLET PO SCH ×2 (09:21→14:00)
[2019-04-17] MEDS: FERROUS SULFATE 325 MG TABLET. PO SCH (09:21)
[2019-04-17] MEDS: OSELTAMIVIR 30 MG CAPSULE PO SCH (09:21)
[2019-04-17] MEDS: LOSARTAN 50 MG TABLET. PO SCH (09:22)
[2019-04-17] MEDS: PANTOPRAZOLE 40 MG TABLET. PO SCH (09:22)
[2019-04-17] MEDS: METOPROLOL TART IMMED RELEASE 25 MG TABLET PO SCH (09:23)
[2019-04-17] MEDS: amLODIPine BESYLATE 10 MG TABLET PO SCH (09:24)
[2019-04-17] MEDS: MUPIROCIN 2% TOPICAL OINTMENT 22GM TUBE. TP SCH ×2 (09:26→14:00)
[2019-04-17] MEDS ORDERED: LEVO50TA PO (10:14)
[2019-04-17] MEDS ORDERED: METO25TA4 PO (10:14)
[2019-04-17] MEDS ORDERED: HYDR-2868 PO (10:14)
[2019-04-17] MEDS ORDERED: FURO40TA4 PO (10:14)
[2019-04-17] MEDS ORDERED: DOXY100C2 PO (10:14)
[2019-04-17] MEDS ORDERED: LORA0.5T96 PO (10:14)
[2019-04-17] MEDS ORDERED: PANT40TA5 PO (10:14)
[2019-04-17] MEDS ORDERED: FERR325T72 PO (10:14)
--- NOTE | 2019-04-17 10:17 | DISCH ---
HOME HEALTH DISCHARGE/MEDS DISCHARGE INFORMATION: Discharge Date: Apr 17, 2019 Final Diagnosis: acute/chronic diastolic heart failure, anemia Condition on Discharge: Stable CODE STATUS: Code Status: Full HOME HEALTH: Face to Face: I certify this patient is under my care and that I, or a nurse practitioner or physician's facilities maintenance assistant working with me, had a face to face encounter that meets the physician face to face encounter requirements with this patient on [Date]. Medical Condition(s): CHF, Other (anemia) Correction For: Assess Cardiopulm Status, Assess & Educate Safety, Medication Management Homebound Status Met By: Extreme weakness w/ amb. POST DISCHARGE ORDERS: Activity Instructions for Disc: Activity as tolerated Weight Bearing Status after Di: No restrictions DIET AFTER DISCHARGE: Cardiac CHECKS AFTER DISCHARGE: Checks after discharge: Check blood press - daily, Weigh Yourself Daily CERTIFICATION STATEMENT: Certification Statement: Based on the above finding, I certify that this patient is confined to the home and needs intermittent halfway care, physical therapy and/or speech therapy, or continues to need occupational therapy.~ This patient is under my care, and I have initiated the establishment of the plan of care.~ This patient will be followed by myself or a community physician who will periodically review the plan of care. DISCHARGE MEDICATIONS: Home Meds Reported Medications Azithromycin (ZITHROMAX) 250 Mg Tablet, 1 PKG PO DAILY for ., #1 PKG 04/14/19 Oseltamivir Phosphate (TAMIFLU) 75 Mg Capsule, 1 CAP PO BID for ., #10 CAP 04/14/19 Trandolapril (TRANDOLAPRIL) 2 Mg Tablet, 1 TAB PO DAILY for . for 30 Days, #30 TAB 0 Refills 04/14/19 Simvastatin (SIMVASTATIN) 20 Mg Tablet, 1 TAB PO QHS for ., #30 TAB 5 Refills 04/14/19 Warfarin Sodium (WARFARIN SODIUM) 3 Mg Tablet, 3 MG PO DAILY for ., TAB 04/14/19 Metoprolol Tartrate (METOPROLOL TARTRATE) 50 Mg Tablet, 1 TAB PO BID for ., #60 TAB 5 Refills 04/14/19 Valsartan (DIOVAN) 320 Mg Tablet, 1 TAB PO DAILY for ., #90 TAB 1 Refill 04/14/19 Amlodipine Besylate (NORVASC) 10 Mg Tablet, 1 TAB PO DAILY for BP, #30 TAB 5 Refills 04/14/19 JERICHO NUÑEZ MD Apr 17, 2019 10:17
[2019-04-17 11:00] VITALS: BP 134/62
[2019-04-17 14:00] VITALS: BP 134/62
[2019-04-17] MEDS ORDERED: VANCOMYCIN 1.25 GM in IV NORMAL SALINE 250ML 250 ML IV SCH (17:00)
--- NOTE | 2019-04-17 17:25 | NUR ---
Discharge Note: THALIA WOODWARD ICU6 Discharge instructions and discharge home medications reviewed with Patient and a copy given. All questions have been answered and understanding verbalized. The patient left the unit via wheelchair accompanied by this RN with all her personal belongings including her purse wallet and home medications. Patient was escorted home by a personal friend. Patient was discharged to her home with home health services.
== END 2019-04-17 15:00 | disposition home health service (06) | DRG 377 ==
LOC: 1 SOUTH 11:35 → ICU 14:17
PROVIDERS: ADMIT Family Medicine; ATTEND Family Medicine
PROC: 30233N1 Transfusion of Nonautologous Red Blood Cells into Peripheral Vein, Percutaneous Approach (ICD-10-PCS; principal; 2019-04-15)
DX: K92.2 Gastrointestinal hemorrhage, unspecified (principal); I50.43 Acute on chronic combined systolic (congestive) and diastolic (congestive) heart failure; I13.0 Hypertensive heart and chronic kidney disease with heart failure and stage 1 through stage 4 chronic kidney disease, or unspecified chronic kidney disease; I48.20 Chronic atrial fibrillation, unspecified; L03.114 Cellulitis of left upper limb; D50.0 Iron deficiency anemia secondary to blood loss (chronic); E78.5 Hyperlipidemia, unspecified; I27.20 Pulmonary hypertension, unspecified; J10.1 Influenza due to other identified influenza virus with other respiratory manifestations; N18.9 Chronic kidney disease, unspecified; I08.1 Rheumatic disorders of both mitral and tricuspid valves; F03.90 Unspecified dementia, unspecified severity, without behavioral disturbance, psychotic disturbance, mood disturbance, and anxiety; I48.0 Paroxysmal atrial fibrillation; Z88.5 Allergy status to narcotic agent; Z79.01 Long term (current) use of anticoagulants; R00.1 Bradycardia, unspecified
CPT/HCPCS: 36415; 71046; 78278; 80048; 80053; 80061; 81001; 82274; 82550; 82607; 83036; 83540; 83550; 83605; 83880; 84145; 84443; 84484; 85025; 85379; 85610; 85651; 86850; 86900; 86901; 86920; 87086; 93005; 93306; 93971; 96374; A9560; J0456; J1940; J3370; J7040; P9016; 97110; 97116; 97530

== ENCOUNTER 2019-09-27 16:10 | Emergency (ER) | payer BC ==
[~2019-09-27] VITALS: Ht 177.8 cm; Wt 59.0 kg
[~2019-09-27 16:10] MED LIST: AMLO10TA4 PO; AZIT250T PO; DOXY100C2 PO; FERR325T72 PO; FURO40TA4 PO; HYDR-2868 PO; LEVO50TA PO; LORA0.5T21 PO; METO25TA4 PO; METO50TA6 PO; OSEL75CA PO; PANT40TA5 PO; SIMV20TA18 PO; TRAN2TAB16 PO; VALS320T2 PO; WARF3TAB50 PO
--- NOTE | 2019-09-27 16:43 | PHYS DOC ---
General Adult EDM: Chief Complaint: MECHANICAL FALL HPI: HPI: Patient is a 83-year-old female who presented to ER today for evaluation of right elbow injury, left leg injury, right pelvic pain after she fell at the parking lot of [employer]. Patient says she was walking and tripped on her feet fell down, landed on her right elbow hit her left leg against a curb. Patient denies any back pain, no neck pain, no headache. Patient denies head or neck injury. Patient walking here without a problem, Kamil right elbow pain, left leg pain, right pelvic pain. Patient is not up-to-date on her tetanus vaccination. Review of Systems: Review of Systems: Constitutional: Denies fever or chills Eyes: Denies change in visual acuity HENT: Denies nasal congestion or sore throat Respiratory: Denies cough or shortness of breath Cardiovascular: Denies chest pain or edema GI: Denies abdominal pain, nausea, vomiting, bloody stools or diarrhea : Denies dysuria Musculoskeletal: Denies back pain. Positive for right elbow pain, left leg pain, right hip pain. Integument: Denies rash Neurologic: Denies headache, focal weakness or sensory changes Endocrine: Denies polyuria or polydipsia Lymphatic: Denies swollen glands Psychiatric: Denies depression or anxiety Heart Score: Risk Factors: Risk Factors: DM, Current or recent (<one month) smoker, HTN, HLP, family history of CAD, obesity. Risk Scores: Score 0 - 3: 2.5% MACE over next 6 weeks - Discharge Home Score 4 - 6: 20.3% MACE over next 6 weeks - Admit for Clinical Observation Score 7 - 10: 72.7% MACE over next 6 weeks - Early Invasive Strategies Current Medications: Current Meds: Current Medications Medications (Trade) Dose Ordered Sig/Tonya Start Time Stop Time Status Last Admin Dose Admin Diphtheria/ Pertussis/Tetanus Vacc (ADACEL TDap SYRINGE) 0.5 ml ONCE ONCE 09/27/19 16:45 09/27/19 16:46 Allergies: Allergies: Allergies Coded Allergies Type Severity Reaction Last Updated Verified codeine Allergy Unknown 04/14/19 Yes Physical Exam: PE: Constitutional: Well developed, well nourished, no acute distress, non-toxic appearance. [] HENT: Normocephalic, atraumatic, bilateral external ears normal, oropharynx moist, no oral exudates, nose normal. [] Eyes: PERRLA, EOMI, conjunctiva normal, no discharge. [] Neck: Normal range of motion, no tenderness, supple, no stridor. [] Cardiovascular:Heart rate regular rhythm, no murmur [] Lungs & Thorax: Bilateral breath sounds clear to auscultation [] Abdomen: Bowel sounds normal, soft, no tenderness, no masses, no pulsatile masses. [] Skin: Warm, dry, no erythema, no rash. [] Back: No tenderness, no CVA tenderness. [] Extremities: There is tenderness to palpation on left distal leg area, no open wound. superficial skin abrasion on right elbow, it is tender to palpation. Right hip is nontender to palpation. Neurologic: Alert and oriented X 3, normal motor function, normal sensory function, no focal deficits noted. [] Psychologic: Affect normal, judgement normal, mood normal. [] EKG: EKG: [] Radiology/Procedures: Radiology/Procedures: [][place] [address] IMAGING REPORT Signed PATIENT: THALIA WOODWARD ACCOUNT: [id number] : 1935 LOCATION: ER AGE: 83 SEX: F EXAM STATUS: REG ER ORD. PHYSICIAN: JERICHO GANT DO REASON: fell, left leg injured PROCEDURE: TIBIA FIBULA LEFT TIBIA FIBULA LEFT History: Reason: fell, left leg injured / Spl. Instructions: / History: Pain. Technique: 2 views left tibia and fibula Comparison: None. Findings: Normal alignment. No fracture. Soft tissues unremarkable. Impression: 1. No acute osseous abnormality. Electronically signed by: Raheem Vivar DO (09/27/2019 5:45 PM) [facility] DICTATED AND SIGNED BY: RAHEEM VIVAR DO DATE: 09/27/191744 CC: JERICHO NUÑEZ MD; JERICHO GANT DO ~ [address] [address] IMAGING REPORT Signed PATIENT: THALIA WOODWARD ACCOUNT: [id number] : 1935 LOCATION: ER AGE: 83 SEX: F EXAM STATUS: REG ER ORD. PHYSICIAN: JERICHO GANT DO REASON: right hip pain, fell PROCEDURE: HIP RIGHT 2V WITH PELVIS HIP RIGHT 2V WITH PELVIS History: Reason: right hip pain, fell / Spl. Instructions: / History: Technique: AP view the pelvis and 2 additional views of the right hip. Comparison: None. Findings: Normal alignment. No fracture. Lower lumbar spondylosis. Moderate colonic stool. Impression: 1. No acute osseous abnormality. Electronically signed by: Raheem Vivar DO (09/27/2019 5:44 PM) [employer] DICTATED AND SIGNED BY: RAHEEM VIVAR DO DATE: 09/27/191743 CC: JERICHO NUÑEZ MD; JERICHO GANT DO ~ [place] [address] IMAGING REPORT Signed PATIENT: THALIA WOODWARD ACCOUNT: [id number] : 1935 LOCATION: ER AGE: 83 SEX: F EXAM STATUS: REG ER ORD. PHYSICIAN: JERICHO GANT DO REASON: fell, right elbow injury PROCEDURE: ELBOW RIGHT 3V ELBOW RIGHT 3V History: Reason: fell, right elbow injury / Spl. Instructions: / History: Pain. Technique: 3 views right elbow. Comparison: None. Findings: Normal alignment. No fracture. No significant elbow joint effusion. Posterior elbow soft tissue swelling. Impression: 1. No acute osseous abnormality. 2. Posterior elbow soft tissue swelling. Electronically signed by: Raheem Vivar DO (09/27/2019 5:46 PM) [employer] DICTATED AND SIGNED BY: RAHEEM VIVAR DO DATE: 09/27/191745 CC: JERICHO NUÑEZ MD; JERICHO GANT DO ~ Course & Med Decision Making: Course & Med Decision Making Pertinent Labs and Imaging studies reviewed. (See chart for details) Patient is a 83-year-old female who was evaluated in the ER after she fell in the parking lot at local [facility] area. Patient sustained contusion to her right elbow, left leg, and right pelvic area. X-ray did not show any fracture. Patient was able to get up and walk without any problem. She denies any pelvic pain at this time when she walks. Denies any hip pain when she walks. We will discharge her home. She was given a tetanus vaccination Bridget Disclaimer: Bridget Disclaimer: This electronic medical record was generated, in whole or in part, using a voice recognition dictation system. Departure Departure: Impression: Primary Impression: Contusion of elbow, right Additional Impressions: Contusion of left leg Contusion of right hip Disposition: HOME/RESIDENCE PRIOR TO ADM Condition: STABLE Referrals: JERICHO NUÑEZ MD (PCP) please follow up with your doctor as needed Patient Instructions: Contusion, Elbow Contusion, VIS, Tetanus, Diphtheria (Td); Tetanus, Diphtheria, Pertussis (Tdap) - [facility] Additional Instructions: Thank you for visiting our Emergency Department. We appreciate you trusting us with your care. If any additional problems come up don't hesitate to return to visit us. Please follow up with your primary care provider so they can plan additional care if needed and know about the problem that you had. If symptoms worsen come back to the Emergency Department. Any concerning symptoms that start such as chest pain, shortness of air, weakness or numbness on one side of the body, running high fevers or any other concerning symptoms return to the ER. Justification of Admission: Justification of Admission: Justification of Admission Dx: N/A JERICHO GANT DO Sep 27, 2019 16:43
[2019-09-27] MEDS ORDERED: DIPH,PERTUSS(ACELL),TET VAC/PF 0.5 ML SYRINGE. VAX IM ONE (16:45)
--- NOTE | 2019-09-27 17:47 | RAD ---
HIP RIGHT 2V WITH PELVIS History: Reason: right hip pain, fell / Spl. Instructions: / History: Technique: AP view the pelvis and 2 additional views of the right hip. Comparison: None. Findings: Normal alignment. No fracture. Lower lumbar spondylosis. Moderate colonic stool. Impression: 1. No acute osseous abnormality. Electronically signed by: Raheem Vivar DO (09/27/2019 5:44 PM) [facility] [place]
--- NOTE | 2019-09-27 17:48 | RAD ---
TIBIA FIBULA LEFT History: Reason: fell, left leg injured / Spl. Instructions: / History: Pain. Technique: 2 views left tibia and fibula Comparison: None. Findings: Normal alignment. No fracture. Soft tissues unremarkable. Impression: 1. No acute osseous abnormality. Electronically signed by: Raheem Vivar DO (09/27/2019 5:45 PM) [facility]
--- NOTE | 2019-09-27 17:49 | RAD ---
ELBOW RIGHT 3V History: Reason: fell, right elbow injury / Spl. Instructions: / History: Pain. Technique: 3 views right elbow. Comparison: None. Findings: Normal alignment. No fracture. No significant elbow joint effusion. Posterior elbow soft tissue swelling. Impression: 1. No acute osseous abnormality. 2. Posterior elbow soft tissue swelling. Electronically signed by: Raheem Vivar DO (09/27/2019 5:46 PM) [facility]
[2019-09-27 17:58] VITALS: BP 117/42
== END 2019-09-27 17:57 | disposition home or self-care (01) ==
LOC: ER 16:10
DX: S50.01XA Contusion of right elbow, initial encounter (principal); S70.01XA Contusion of right hip, initial encounter; S80.12XA Contusion of left lower leg, initial encounter; W01.0XXA Fall on same level from slipping, tripping and stumbling without subsequent striking against object, initial encounter; Y93.01 Activity, walking, marching and hiking; Y92.481 Parking lot as the place of occurrence of the external cause; Y99.8 Other external cause status
CPT/HCPCS: 73080; 73502; 73590; 90471; 90715; 99284

== ENCOUNTER → 2020-01-15 | Outpatient (CLI) | payer BC ==
[~2020-01-15] MED LIST changes: -PANT40TA5 PO; +PANT40TA6 PO
== END ==
LOC: LAB 09:59
PROVIDERS: ATTEND Nurse Anesthetist, Certified Registered
DX: Z01.812 Encounter for preprocedural laboratory examination (principal); Z20.828 Contact with and (suspected) exposure to other viral communicable diseases; H26.8 Other specified cataract
CPT/HCPCS: U0003

== ENCOUNTER → 2020-01-19 | Day surgery (SDC) | payer BC ==
[~2020-01-19] MED LIST changes: +BALANCED SALT IRRIG OPHTH SOLN 15 ML BOTTLE. IRR ONE; +CATARACT OPHTH GEL 0.5 ML SYRINGE. OS ONE; +CHONDROIT-SOD-HYALURONATE KIT. OS ONE; +EPINEPHrine AMPULE 0.5 MG in BALANCED SALT IRRIG SOLN PLUS 500 ML IO ONE; +ERYTHROMYCIN 0.5% OPHTH OINTMENT 1GM TUBE. OS ONE; +HYALURONIDASE 75UNITS in LIDOCAINE 2% PF OPHTH 10 ML SYRINGE. OS ONE; +IPRATRPIUM/ALBUTEROL 0.5/2.5MG 3 ML NEBU. NEB PRN; +IV RINGERS SOLUTION,LACTATED 1,000 ML IV SCH; +KETOROLAC TROMETHAMINE 0.5% OPHTH SOLUTION BOTTLE. ONE; +KETOROLAC TROMETHAMINE 0.5% OPHTH SOLUTION BOTTLE. OS SCH; +LIDO/EPI IN BSS OPHTH 4 ML SYRINGE OS ONE; +MIDAZOLAM HCL PF 2 MG/2 ML VIAL. IV ONE; +MOXIFLOXACIN 0.5% OPHTH SOLUTION 3ML BOTTLE. OS SCH; +ONDANSETRON PF 4 MG/2 ML VIAL. IV PRN; +POVIDONE-IODINE 5% OPHTH SOLUTION 30ML BOTTLE. OS ONE; +TETRACAINE 0.5% OPHTH SOLUTION 4ML BOTTLE. OS ONE; +TETRACAINE 0.5% OPHTH SOLUTION 4ML BOTTLE. OU ONE; +prednisoLONE ACETATE 1% OPHTH SUSPENSION 5ML BOTTLE. ONE; +prednisoLONE ACETATE 1% OPHTH SUSPENSION 5ML BOTTLE. OS SCH
[2020-01-19] MEDS: MOXIFLOXACIN 0.5% OPHTH SOLUTION 3ML BOTTLE. OS SCH ×3 (09:48→09:55)
--- NOTE | 2020-01-19 10:27 | PDOC4 ---
Phaco/IFIS w/o Ring/OS Date of Procedure: Jan 19, 2020 Preoperative Diagnosis: 1. Senile Cataract, Left Eye 2. Anticipated Intraoperative Floppy Iris Syndrome Posoperative Diagnosis: 1. Senile Cataract, Left Eye 2. Intraoperative Floppy Iris Syndrome Anesthesia: Local (Block) with monitored anesthesia care Surgeon: Felice Bethea D.O. Procedure: Procdeure: Left Phacoemulsification with Intraocular Lens Implant Findings: Senile Cataract Intraoperative Floppy Iris Syndrome Indications: Worsening vision interfering with patient's lifestyle Narrative: After discussing the risks, complications and alternatives, including but not limited to loss of vision, infection, bleeding, swelling, anesthetic reaction, capsule rupture with vitreous loss, etc., the patient was given a peribulbar block under mild IV sedation and cardiac monitoring. Pressure was applied to the eye for approximately 10 minutes. The patient was transferred to the main operating room and was prepped and draped in the usual sterile fashion and positioned under the microscope. A lid speculum was placed. A temporal clear corneal incision was made with a keratome and epi-Shugarcaine was injected into the anterior chamber, this was followed by injecting viscoelastic. A side port incision was made. A continuous tear capsulorrhexis was performed, then hydrodissection was accomplished with balanced salt solution. The phacoemulsification needle was placed in the eye and the nucleus was emulsified. The remaining cortical material was removed with the irrigation and aspiration apparatus. The capsule was polished as needed. The posterior capsule was noted to be clean and intact. Viscoelastic was injected into the eye inflating the capsular bag. An intraocular lens was injected into the eye, unfolding as desired and was positioned in the capsular bag. The viscoelastic was aspirated from the eye. The wound edges were hydrated with balanced salt solution and there were no leaks. Viscoelastic was injected over the limbal incisions. Antibiotic and steroid were placed on the eye. The lid speculum was removed, the eye patched shut and a Alicea shield applied. There were no complications and the patient was taken to the PACU in good condition. FELICE BETHEA DO Jan 19, 2020 10:27
[2020-01-19 10:45] VITALS: BP 117/75
== END | disposition home or self-care (01) ==
LOC: SURG 09:12
PROVIDERS: ATTEND Ophthalmology
DX: E11.36 Type 2 diabetes mellitus with diabetic cataract (principal); H25.12 Age-related nuclear cataract, left eye; H21.81 Floppy iris syndrome; I11.0 Hypertensive heart disease with heart failure; I50.9 Heart failure, unspecified; E07.9 Disorder of thyroid, unspecified; M19.90 Unspecified osteoarthritis, unspecified site; D50.9 Iron deficiency anemia, unspecified; F41.9 Anxiety disorder, unspecified; Z88.5 Allergy status to narcotic agent; Z90.710 Acquired absence of both cervix and uterus; Z98.890 Other specified postprocedural states; Z79.82 Long term (current) use of aspirin; Z79.899 Other long term (current) drug therapy; Z86.73 Personal history of transient ischemic attack (TIA), and cerebral infarction without residual deficits
CPT/HCPCS: 66984; J0171; V2632

== ENCOUNTER → 2020-01-29 | Outpatient (CLI) | payer BC ==
[2020-01-19 10:45] VITALS: BP 117/75
[~2020-01-29] MED LIST changes: -BALANCED SALT IRRIG OPHTH SOLN 15 ML BOTTLE. IRR ONE; -CATARACT OPHTH GEL 0.5 ML SYRINGE. OS ONE; -CHONDROIT-SOD-HYALURONATE KIT. OS ONE; -EPINEPHrine AMPULE 0.5 MG in BALANCED SALT IRRIG SOLN PLUS 500 ML IO ONE; -ERYTHROMYCIN 0.5% OPHTH OINTMENT 1GM TUBE. OS ONE; -HYALURONIDASE 75UNITS in LIDOCAINE 2% PF OPHTH 10 ML SYRINGE. OS ONE; -IPRATRPIUM/ALBUTEROL 0.5/2.5MG 3 ML NEBU. NEB PRN; -IV RINGERS SOLUTION,LACTATED 1,000 ML IV SCH; -KETOROLAC TROMETHAMINE 0.5% OPHTH SOLUTION BOTTLE. ONE; -KETOROLAC TROMETHAMINE 0.5% OPHTH SOLUTION BOTTLE. OS SCH; -LIDO/EPI IN BSS OPHTH 4 ML SYRINGE OS ONE; -MIDAZOLAM HCL PF 2 MG/2 ML VIAL. IV ONE; -MOXIFLOXACIN 0.5% OPHTH SOLUTION 3ML BOTTLE. OS SCH; -ONDANSETRON PF 4 MG/2 ML VIAL. IV PRN; -POVIDONE-IODINE 5% OPHTH SOLUTION 30ML BOTTLE. OS ONE; -TETRACAINE 0.5% OPHTH SOLUTION 4ML BOTTLE. OS ONE; -TETRACAINE 0.5% OPHTH SOLUTION 4ML BOTTLE. OU ONE; -prednisoLONE ACETATE 1% OPHTH SUSPENSION 5ML BOTTLE. ONE; -prednisoLONE ACETATE 1% OPHTH SUSPENSION 5ML BOTTLE. OS SCH
== END ==
LOC: LAB 09:08
PROVIDERS: ATTEND Nurse Anesthetist, Certified Registered
DX: Z01.818 Encounter for other preprocedural examination (principal); H26.9 Unspecified cataract; Z20.828 Contact with and (suspected) exposure to other viral communicable diseases
CPT/HCPCS: U0003

== ENCOUNTER → 2020-02-02 | Day surgery (SDC) | payer BC ==
[~2020-02-02] MED LIST changes: +BALANCED SALT IRRIG ONE; +BALANCED SALT IRRIG OPHTH SOLN 15 ML BOTTLE. IRR ONE; +CATARACT OPHTH GEL 0.5 ML SYRINGE. OD ONE; +CHONDROIT-SOD-HYALURONATE KIT. OD ONE; +EPINEPHrine AMPULE 0.5 MG in BALANCED SALT IRRIG SOLN PLUS 500 ML IO ONE; +ERYTHROMYCIN 0.5% OPHTH OINTMENT 1GM TUBE. OD ONE; +HYALURONIDASE 75UNITS in LIDOCAINE 2% PF OPHTH 10 ML SYRINGE. OD ONE; +IPRATRPIUM/ALBUTEROL 0.5/2.5MG 3 ML NEBU. NEB PRN; +IV RINGERS SOLUTION,LACTATED 1,000 ML IV SCH; +KETOROLAC TROMETHAMINE 0.5% OPHTH SOLUTION BOTTLE. OD SCH; +LIDO/EPI IN BSS OPHTH 4 ML SYRINGE. OD ONE; +MIDAZOLAM HCL PF 2 MG/2 ML VIAL. IV ONE; +MOXIFLOXACIN 0.5% OPHTH SOLUTION 3ML BOTTLE. OD SCH; +ONDANSETRON PF 4 MG/2 ML VIAL. IV PRN; +POVIDONE-IODINE 5% OPHTH SOLUTION 30ML BOTTLE. OD ONE; +PROPOFOL 10,000 MCG/ML (20ML) VIAL IV ONE; +TETRACAINE 0.5% OPHTH SOLUTION 4ML BOTTLE. OD ONE; +TETRACAINE 0.5% OPHTH SOLUTION 4ML BOTTLE. OU ONE; +prednisoLONE ACETATE 1% OPHTH SUSPENSION 5ML BOTTLE. OD SCH
[2020-02-02] MEDS: MOXIFLOXACIN 0.5% OPHTH SOLUTION 3ML BOTTLE. OD SCH ×3 (08:30→08:43)
--- NOTE | 2020-02-02 09:15 | PDOC4 ---
Phaco IOL/IFIS w/o Ring/OD Date of Procedure: Feb 02, 2020 Preoperative Diagnosis: 1. Senile Cataract, Right Eye 2. Anticipated Intraoperative Floppy Iris Syndrome Postoperative Diagnosis: 1. Senile Cataract, Right Eye 2. Intraoperative Floppy Iris Syndrome Anesthesia: Local (Block) with monitored anesthesia care Surgeon: Felice Bethea D.O. Procedure: Procdeure: Right Phacoemulsification with intraocular lens implant Findings: Senile Cataract Intraoperative Floppy Iris Syndrome Indications: Worsening vision interfering with patient's lifestyle Narrative: After discussing the risks, complications and alternatives, including but not limited to loss of vision, infection, bleeding, swelling, anesthetic reaction, capsule rupture with vitreous loss, etc., the patient was given a peribulbar block under mild IV sedation and cardiac monitoring. Pressure was applied to the eye for approximately 10 minutes. The patient was transferred to the main operating room and was prepped and draped in the usual sterile fashion and positioned under the microscope. A lid speculum was placed. A temporal clear corneal incision was made with a keratome and epi-Shugarcaine was injected into the anterior chamber, this was followed by injecting viscoelastic. A side port incision was made. A continuous tear capsulorrhexis was was performed, then hydrodissection was accomplished with balanced salt solution. The phacoemuls ification needle was placed in the eye and the nucleus was emulsified. The remaining cortical material was removed with the irrigation and aspiration apparatus. The capsule was polished as needed. The posterior capsule was noted to be clean and intact. Viscoelastic was injected into the eye inflating the capsular bag. An intraocular lens was injected into the eye, unfolding as desired and was positioned in the capsular bag. The viscoelastic was aspirated from the eye. The wound edges were hydrated with balanced salt solution and there were no leaks. Viscoelastic was injected over the limbal incisions. Antibiotic and steroid were placed on the eye. The lid speculum was removed, the eye patched shut and a Alicea shield applied. There were no compilations and the patient was taken to the PACU in good condition. FELICE BETHEA DO Feb 02, 2020 09:15
[2020-02-02 09:20] VITALS: BP 141/87
== END | disposition home or self-care (01) ==
LOC: SURG 08:03
PROVIDERS: ATTEND Ophthalmology
DX: E11.36 Type 2 diabetes mellitus with diabetic cataract (principal); H25.11 Age-related nuclear cataract, right eye; H21.81 Floppy iris syndrome; I13.0 Hypertensive heart and chronic kidney disease with heart failure and stage 1 through stage 4 chronic kidney disease, or unspecified chronic kidney disease; E11.22 Type 2 diabetes mellitus with diabetic chronic kidney disease; I50.43 Acute on chronic combined systolic (congestive) and diastolic (congestive) heart failure; N18.9 Chronic kidney disease, unspecified; E03.9 Hypothyroidism, unspecified; F41.9 Anxiety disorder, unspecified; I48.20 Chronic atrial fibrillation, unspecified; E78.5 Hyperlipidemia, unspecified; D50.0 Iron deficiency anemia secondary to blood loss (chronic); F03.90 Unspecified dementia, unspecified severity, without behavioral disturbance, psychotic disturbance, mood disturbance, and anxiety; M19.90 Unspecified osteoarthritis, unspecified site; Z90.710 Acquired absence of both cervix and uterus; Z79.899 Other long term (current) drug therapy; Z88.5 Allergy status to narcotic agent; Z98.890 Other specified postprocedural states; Z79.82 Long term (current) use of aspirin; Z79.01 Long term (current) use of anticoagulants; Z86.73 Personal history of transient ischemic attack (TIA), and cerebral infarction without residual deficits
CPT/HCPCS: 66984; J0171; J2704; V2632

== ENCOUNTER 2021-04-21 14:34 | Emergency (ER) | payer BC ==
[~2021-04-21] VITALS: Ht 177.8 cm; Wt 63.2 kg
[~2021-04-21 14:34] MED LIST changes: -BALANCED SALT IRRIG ONE; -BALANCED SALT IRRIG OPHTH SOLN 15 ML BOTTLE. IRR ONE; -CATARACT OPHTH GEL 0.5 ML SYRINGE. OD ONE; -CHONDROIT-SOD-HYALURONATE KIT. OD ONE; -DOXY100C2 PO; +DOXY100C3 PO; -EPINEPHrine AMPULE 0.5 MG in BALANCED SALT IRRIG SOLN PLUS 500 ML IO ONE; -ERYTHROMYCIN 0.5% OPHTH OINTMENT 1GM TUBE. OD ONE; -HYALURONIDASE 75UNITS in LIDOCAINE 2% PF OPHTH 10 ML SYRINGE. OD ONE; -IPRATRPIUM/ALBUTEROL 0.5/2.5MG 3 ML NEBU. NEB PRN; -IV RINGERS SOLUTION,LACTATED 1,000 ML IV SCH; -KETOROLAC TROMETHAMINE 0.5% OPHTH SOLUTION BOTTLE. OD SCH; -LIDO/EPI IN BSS OPHTH 4 ML SYRINGE. OD ONE; -MIDAZOLAM HCL PF 2 MG/2 ML VIAL. IV ONE; -MOXIFLOXACIN 0.5% OPHTH SOLUTION 3ML BOTTLE. OD SCH; -ONDANSETRON PF 4 MG/2 ML VIAL. IV PRN; -POVIDONE-IODINE 5% OPHTH SOLUTION 30ML BOTTLE. OD ONE; -PROPOFOL 10,000 MCG/ML (20ML) VIAL IV ONE; -TETRACAINE 0.5% OPHTH SOLUTION 4ML BOTTLE. OD ONE; -TETRACAINE 0.5% OPHTH SOLUTION 4ML BOTTLE. OU ONE; -TRAN2TAB16 PO; +TRAN2TAB17 PO; -prednisoLONE ACETATE 1% OPHTH SUSPENSION 5ML BOTTLE. OD SCH
[2021-04-21] MEDS ORDERED: IV NORMAL SALINE 1,000ML 1,000 ML IV ONE ×2 (14:45→15:45)
--- NOTE | 2021-04-21 14:53 | RAD ---
AP chest. HISTORY: Chest pain AP view was taken of the chest. Comparison is made with a study from March 2019. Heart is upper nor mal in size. Patient is rotated to the left. There is not evidence of heart failure. There is no effu pam. Retrocardiac lung on the left is not optimally evaluated. No other infiltrates are noted. IMPRESSION: 1. Left lung base poorly evaluated. 2. No definite infiltrates. Electronically signed by: Timmy Gay MD (04/21/2021 2:51 PM) [id number]
--- NOTE | 2021-04-21 14:56 | PHYS DOC ---
Past History Past Medical History: Anemia, CHF Past Surgical History: No Surgical History Alcohol Use: None General Adult EDM: Chief Complaint: WEAKNESS/GENERALIZED HPI: HPI: 85-year-old female presents via EMS from home with bradycardia and low blood pressure. The patient was being checked on by her primary physician, Dr. Gonzales. He found the patient to appear very dehydrated and he was very concerned. He called 911 to have the patient transported to the hospital. Patient tells me she has been having some abdominal pain with vomiting. She does not know she has had a fever. She is very hard of hearing. She has no other specific complaints at this time. She did not take any of her medications this morning. Review of Systems: Review of Systems: Constitutional: Denies fever or chills Eyes: Denies change in visual acuity HENT: Denies nasal congestion or sore throat Respiratory: Denies cough or shortness of breath Cardiovascular: Denies chest pain or edema GI: Generalized abdominal pain, nausea, vomiting. : Denies dysuria Musculoskeletal: Denies back pain or joint pain Integument: Denies rash Neurologic: Denies headache, focal weakness or sensory changes Endocrine: Denies polyuria or polydipsia Lymphatic: Denies swollen glands Psychiatric: Denies depression or anxiety Current Medications: Current Meds: Current Medications Medications (Trade) Dose Ordered Sig/Tonya Start Time Stop Time Status Last Admin Dose Admin Sodium Chloride 1,000 ml @ 1,000 mls/hr 1X ONCE 04/21/21 14:45 04/21/21 15:44 Allergies: Allergies: Allergies Coded Allergies Type Severity Reaction Last Updated Verified codeine Allergy Unknown 01/19/20 Yes Physical Exam: PE: Constitutional: Well developed, well nourished, no acute distress, non-toxic appearance. [] HENT: Normocephalic, atraumatic, bilateral external ears normal, oropharynx very dry, no oral exudates, nose normal. [] Eyes: PERRLA, EOMI, conjunctiva normal, no discharge. [] Neck: Normal range of motion, no tenderness, supple, no stridor. [] Cardiovascular: Heart rate 50, regular rhythm, no murmur [] Lungs & Thorax: Bilateral breath sounds clear to auscultation [] Abdomen: Bowel sounds normal, soft, no tenderness, no masses, no pulsatile masses. [] Skin: Warm, dry, no erythema, no rash. [] Back: No tenderness, no CVA tenderness. [] Extremities: No tenderness, no cyanosis, no clubbing, ROM intact, no edema. [] Neurologic: Alert and oriented X 3, normal motor function, normal sensory function, no focal deficits noted. [] Psychologic: Affect normal, judgement normal, mood normal. [] EKG: EKG: Irregular rhythm, rate 44, rightward axis, no ST elevation or depression. [] Radiology/Procedures: Radiology/Procedures: [] Heart Score: C/O Chest Pain: N/A Risk Factors: Risk Factors: DM, Current or recent (<one month) smoker, HTN, HLP, family history of CAD, obesity. Risk Scores: Score 0 - 3: 2.5% MACE over next 6 weeks - Discharge Home Score 4 - 6: 20.3% MACE over next 6 weeks - Admit for Clinical Observation Score 7 - 10: 72.7% MACE over next 6 weeks - Early Invasive Strategies Course & Med Decision Making: Course & Med Decision Making Pertinent Labs and Imaging studies reviewed. (See chart for details) On arrival the patient is bradycardic in the 40s and 50s. She does not appear to be bothered by this. She is awake and talking. She is very hard of hearing but answers appropriately when asked questions. I have ordered a liter normal saline for labs are pending. She does appear very clinically dry. Blood pressure is 114/42. Patient has several blood pressure medicines prescribed as well as Lasix. She is not able to tell me how often she has been taking these but states not taking anything today. I spoke with the foreclosure field inspector at [facility] and he has recommended patient be transferred to a higher level of care. Psychiatric does not have any beds available. The patient's labs came back with critically high BUN, creatinine, and potassium 6.5. I started her on D5 and insulin. See labs for more details. She appears to be having acute kidney failure. She has been given 2 L normal saline in addition to the maintenance D5. I spoke with Dr. Santino Bustillo at [facility] and he has accepted the patient for transfer. She will go by ambulance. [] Bridget Disclaimer: Bridget Disclaimer: This electronic medical record was generated, in whole or in part, using a voice recognition dictation system. Departure Departure: Impression: Primary Impression: Acute kidney failure Additional Impressions: Dehydration Hyperkalemia Bradycardia Disposition: 02 SHORT TERM HOSPITAL Condition: GUARDED Referrals: JERICHO GONZALES MD (PCP) TIMOTHY GARSIA DO Apr 21, 2021 14:56
[2021-04-21 15:16] LABS: BASO % 0 % (0-3); EOS % 0 % (0-3); HEMATOCRIT 43.2 % (36.0-47.0); HEMOGLOBIN 14.7 g/dL (12.0-15.5); LYMPH # 0.5 x10^3/uL (1.0-4.8); LYMPH % 5 % (24-48); MEAN CORPUSCULAR HEMOGLOBIN 32 pg (25-35); MEAN CORPUSCULAR HGB CONC 34 g/dL (31-37); MEAN CORPUSCULAR VOLUME 94 fL (79-100); MONO # 0.5 x10^3/uL (0.0-1.1); MONO % 6 % (0-9); NEUT # 8.4 x10^3uL (1.8-7.7); NEUT % 89 % (31-73); PLATELET COUNT 213 x10^3/uL (140-400); RED BLOOD COUNT 4.61 x10^6/uL (3.50-5.40); RED CELL DISTRIBUTION WIDTH 13.2 % (11.5-14.5); WHITE BLOOD COUNT 9.4 x10^3/uL (4.0-11.0)
[2021-04-21 15:31] LABS: ALBUMIN 3.5 g/dL (3.4-5.0); ALBUMIN/GLOBULIN RATIO 0.9 (1.0-1.7); CALCIUM 10.2 mg/dL (8.5-10.1); CREATININE 13.3 mg/dL (0.6-1.0); GFR 2.7; TOTAL BILIRUBIN 0.5 mg/dL (0.2-1.0); TOTAL PROTEIN 7.5 g/dL (6.4-8.2)
[2021-04-21] MEDS ORDERED: ONDANSETRON PF 4 MG/2 ML VIAL. ONE (15:36)
[2021-04-21 15:37] LABS: POTASSIUM 6.5 mmol/L (3.5-5.1)
[2021-04-21] MEDS ORDERED: INSULIN REGULAR 100 UNIT/ML 3ML VIAL. IV ONE (15:45)
[2021-04-21] MEDS ORDERED: IV DEXTROSE 5% - 0.9 % NACL 1,000 ML IV ONE (15:45)
--- NOTE | 2021-04-21 16:32 | EKG ---
[address] [address] Test Date: 2021-04-21 Test Time: 14:40:19 Pat Name: THALIA WOODWARD Department: Room: Gender: F Production Lead: HOMER : 1935 Requested By: TIMOTHY GARSIA Order Number: [id number] Reading MD: Winston Pereyra Measurements Intervals [place] Rate: 44 P: [place]: QRS: 107 QRSD: 106 T: 39 QT: 484 QTc: 414 Interpretive Statements ATRIAL FIBRILLATION, RATE OF [address] SPE[address]-T WAVE CHANGES Electronically Signed On 04-24-2021 12:17:11 BATCH OPERATOR by Winston Pereyra
[2021-04-21 16:33] LABS: INFLUENZA A PATIENT NEGATIVE (NEGATIVE); INFLUENZA B PATIENT NEGATIVE (NEGATIVE)
[2021-04-21 17:13] VITALS: BP 93/50
[2021-04-21] MEDS ORDERED: ATROPINE SULFATE 1 MG VIAL ONE (17:14)
[2021-04-21] MEDS ORDERED: PANTOPRAZOLE IV 40 MG VIAL. IVP ONE (17:15)
[2021-04-21] MEDS ORDERED: ATROPINE 1 MG/10 ML DISP.SYRINGE. IV ONE (17:30)
== END 2021-04-21 18:07 | disposition short-term general hospital (02) ==
LOC: ER 14:34
DX: N17.9 Acute kidney failure, unspecified (principal); E86.0 Dehydration; E87.5 Hyperkalemia; R00.1 Bradycardia, unspecified; I50.9 Heart failure, unspecified; Z20.822 Contact with and (suspected) exposure to COVID-19; Z86.2 Personal history of diseases of the blood and blood-forming organs and certain disorders involving the immune mechanism; Z88.5 Allergy status to narcotic agent
CPT/HCPCS: 36415; 71045; 80053; 83605; 84484; 85025; 87040; 87428; 93005; 96361; 96374; 96375; 99285; C9113; C9803; J0461; J1815; J7030; J7042; U0003

== ENCOUNTER 2021-04-30 12:11 | Inpatient (IN) | payer BC ==
[~2021-04-30] VITALS: Ht 177.8 cm; Wt 73.9 kg
--- NOTE | 2021-04-30 12:26 | PHYS DOC ---
Past History Past Medical History: Anemia, CHF Additional Past Medical Histor: cardiac Past Surgical History: No Surgical History Alcohol Use: None Adult General Chief Complaint Chief Complaint: FATIGUE HPI HPI Patient is an 85-year-old female presenting via EMS for failure to thrive. This is an acute on chronic issue. Patient is followed in outpatient setting by Dr. Abbott and there have been numerous attempts to send her to inpatient rehabilitation as she lives alone and cannot fully perform all activities of daily living. Nonetheless, patient has been resistant to inpatient placement. She is otherwise been at home and has home health care services that come and check on her regularly. Last week, patient was found obtunded in home, presented to our facility and formally evaluated before being transferred to [facility] for diagnosis of acute renal failure with creatinine 13 and hyperkalemia with potassium 6.5. It is unclear what happened during her hospitalization, unknown if she ever received hemodialysis but patient was ultimately discharged home with continued home health. Reports she has been at baseline health but today, home health representatives state that patient has been in same chair for past 3 days and there was concern about need for higher level of care than she is currently getting so EMS was called. Patient found to be hemodynamically stable on arrival with no complaints and transported to our facility. In the ER, patient has no complaints besides generalized upper respiratory symptoms in an individual who is fully vaccinated against COVID-19. Denies any recent fever, trauma or falls, syncope, chest pain, shortness of breath, abdominal pain, urinary complaints, motor or sensory or neuro deficits. She is amenable to inpatient placement at this time Review of Systems Review of Systems Fourteen body systems of review of systems have been reviewed. See HPI for pertinent positives and negative responses, other hargrove all other systems are negative, non-pertinent or non-contributory Allergies Allergies Allergies Coded Allergies Type Severity Reaction Last Updated Verified codeine Allergy Unknown 01/19/20 Yes Physical Exam Physical Exam Constitutional: Age-appropriate, thin and malnourished appearing, no acute distress, non-toxic appearance. HENT: Normocephalic, atraumatic, bilateral external ears normal, oropharynx moist, no oral exudates, nose normal. Eyes: PERRLA, EOMI, conjunctiva normal, no discharge. Neck: Normal range of motion, no tenderness, supple, no stridor. Cardiovascular: Heart rate regular, sinus rhythm, no murmurs rubs or gallops Lungs & Thorax: Bilateral breath sounds clear to auscultation Abdomen: Bowel sounds normal, soft, no tenderness, no masses, no pulsatile masses. Nonsurgical abdomen, no peritoneal signs Skin: Warm, dry, no erythema, no rash. Back: No tenderness, no CVA tenderness. Extremities: No tenderness, no cyanosis, no clubbing, ROM intact, no edema. Neurologic: Alert and oriented X 3, grossly normal motor & sensory function, no focal deficits noted. Psychologic: Normal affect, assessing mood Current Patient Data Vital Signs Vital Signs Date Time Temp Pulse Resp B/P (MAP) Pulse Ox O2 Delivery O2 Flow Rate FiO2 04/30/21 12:22 98.1 71 16 132/62 (85) 98 Room Air Vital Signs Date Time Temp Pulse Resp B/P (MAP) Pulse Ox O2 Delivery O2 Flow Rate FiO2 04/30/21 12:22 98.1 71 16 132/62 (85) 98 Room Air Lab Results Laboratory Tests Test 04/30/21 13:07 04/30/21 14:26 White Blood Count 6.3 x10^3/uL Red Blood Count 3.65 x10^6/uL Hemoglobin 11.6 g/dL Hematocrit 34.5 % Mean Corpuscular Volume 95 fL Mean Corpuscular Hemoglobin 32 pg Mean Corpuscular Hemoglobin Concent 34 g/dL Red Cell Distribution Width 13.0 % Platelet Count 109 x10^3/uL Neutrophils (%) (Auto) 78 % Lymphocytes (%) (Auto) 9 % Monocytes (%) (Auto) 12 % Eosinophils (%) (Auto) 1 % Basophils (%) (Auto) 1 % Neutrophils # (Auto) 4.9 x10^3uL Lymphocytes # (Auto) 0.5 x10^3/uL Monocytes # (Auto) 0.8 x10^3/uL Eosinophils # (Auto) 0.1 x10^3/uL Basophils # (Auto) 0.0 x10^3/uL Sodium Level 144 mmol/L Potassium Level 4.2 mmol/L Chloride Level 111 mmol/L Carbon Dioxide Level 21 mmol/L Anion Gap 12 Blood Urea Nitrogen 32 mg/dL Creatinine 1.7 mg/dL Estimated GFR (Cockcroft-Gault) 28.6 BUN/Creatinine Ratio 19 Glucose Level 100 mg/dL Calcium Level 8.8 mg/dL Magnesium Level 1.3 mg/dL Total Bilirubin 0.6 mg/dL Aspartate Amino Transf (AST/SGOT) 20 U/L Alanine Aminotransferase (ALT/SGPT) 21 U/L Alkaline Phosphatase 109 U/L Creatine Kinase 26 U/L Troponin I High Sensitivity 11 ng/L Total Protein 6.2 g/dL Albumin 2.4 g/dL Albumin/Globulin Ratio 0.6 SARS-CoV-2 Antigen (Rapid) Negative Urine Collection Type Unknown Urine Color Yellow Urine Clarity Turbid Urine pH 8.5 Urine Specific [place] 1.020 Urine Protein >100 mg/dl Urine Glucose (UA) Neg mg/dL Urine Ketones (Stick) Neg mg/dL Urine Blood Mod Urine Nitrite Neg Urine Bilirubin Neg Urine Urobilinogen Dipstick 1.0 mg/dL Urine Leukocyte Esterase Large Urine RBC 6-10 /HPF Urine WBC Tntc /HPF Urine Squamous Epithelial Cells Occ /LPF Urine Bacteria Many /HPF Urine Mucus Mod /LPF Current Medications Medications (Trade) Dose Ordered Sig/Tonya Route PRN Reason Start Time Stop Time Status Last Admin Dose Admin Magnesium Sulfate 50 ml @ 25 mls/hr 1X ONCE IV 04/30/21 14:15 04/30/21 16:14 DC 04/30/21 14:15 EKG EKG EKG ordered and interpreted by myself at 12 oh 39 hours as atrial fibrillation at 69 bpm, right axis deviation, unremarkable intervals, significant artifact due to underlying muscle body tremor otherwise no obvious ischemic findings, no STEMI Radiology/Procedures Radiology/Procedures EXAMINATION: Chest radiograph. VIEWS: Single AP view of the chest COMPARISON: 10/19/2021 INDICATION:85 years, Female, failure to thrive. FINDINGS: Redemonstrated cardiomegaly. Central vascular congestion and mild interstitial thickening. Patchy bibasilar opacities. Small left pleural effusion. No pneumothorax. No acute osseous process. No pneumothorax. No acute osseous process. IMPRESSION: Findings favor cardiopulmonary edema with small left pleural effusion, multifocal pneumonia is also a consideration. Electronically signed by: Andrew Tyson DO (04/30/2021 12:50 PM) [facility] Heart Score C/O Chest Pain: No HEART Score for Chest Pain: HEART Score for Chest Pain Response (Comments) Value History Slighlty/Non-Suspicious 0 ECG Nonspecific Repolarizatio 1 Age > 65 2 Risk Factors >3 Risk Factors or Hx CAD 2 Troponin < Normal Limit 0 Total 5 Risk Factors: Risk Factors: DM, Current or recent (<one month) smoker, HTN, HLP, family history of CAD, obesity. Risk Scores: Risk Factors: DM, Current or recent (<one month) smoker, HTN, HLP, family history of CAD, obesity. Course & Med Decision Making Course & Med Decision Making ABCs unremarkable HPI physical exam comprehensive ER work-up concerning for failure to thrive in a high risk individual who lives at home requiring higher level of care than cu rrently provided. Hypomagnesemia corrected today. And hematuria with leukocytes in absence of urinary symptoms Primary care physician who also serves as hospitalist contacted and amenable to admission for PT/OT evaluation and consideration for inpatient rehab placement. Agreeable to magnesium replacement with plans for recheck in the morning Will defer decision to treat leukocyte esterase and will watch culture to see if legitimate UTI inpatient. CT abdomen pelvis ordered to better evaluate hematuria. This was discovered/obtained after admission but will b monitor and worked up All questions and concerns patient had addressed prior to hospital admission. Confirm she is full code at time of admission Dragon Disclaimer Dragon Disclaimer This electronic medical record was generated, in whole or in part, using a voice recognition dictation system. Departure Departure: Impression: Primary Impression: Failure to thrive Additional Impressions: Hypomagnesemia Hematuria Disposition: ADMITTED INPATIENT Admitting Physician: Jericho Nuñez Condition: STABLE Referrals: JERICHO NUÑEZ MD (PCP) Problem Qualifiers KELL CAMACHO Apr 30, 2021 12:26
--- NOTE | 2021-04-30 12:53 | RAD ---
EXAMINATION: Chest radiograph. VIEWS: Single AP view of the chest COMPARISON: 10/19/2021 INDICATION:85 years, Female, failure to thrive. FINDINGS: Redemonstrated cardiomegaly. Central vascular congestion and mild interstitial thickening. Patchy bib asilar opacities. Small left pleural effusion. No pneumothorax. No acute osseous process. No pneumoth orax. No acute osseous process. IMPRESSION: Findings favor cardiopulmonary edema with small left pleural effusion, multifocal pneumonia is also a consideration. Electronically signed by: Andrew Tyson DO (04/30/2021 12:50 PM) [facility]
--- NOTE | 2021-04-30 13:01 | EKG ---
[address] [address] Test Date: 2021-04-30 Test Time: 12:32:18 Pat Name: THALIA WOODWARD Department: Room: Gender: F Telephone Directory Deliverer: HOMER : 1935 Requested By: KELL CAMACHO Order Number: [id number] Reading MD: Sergio William MD Measurements Intervals [place] Rate: 69 P: [place]: QRS: 105 QRSD: 68 T: 91 QT: 402 QTc: 432 Interpretive Statements CONSIDER LIMB LEAD MISPLACEMENT PROBABLE SR NON-SPECIFIC ST/T CHANGES CONSIDER REPEAT EKG POOR R WAVE PROGRESSION POOR R WAVE PROGRESSION BASELINE ARTIFACT Electronically Signed On 05-01-2021 8:21:21 REGIONAL MAINTENANCE MANAGER by Sergio William MD
[2021-04-30 13:27] LABS: BASO % 1 % (0-3); EOS # 0.1 x10^3/uL (0.0-0.7); EOS % 1 % (0-3); HEMATOCRIT 34.5 % (36.0-47.0); HEMOGLOBIN 11.6 g/dL (12.0-15.5); LYMPH # 0.5 x10^3/uL (1.0-4.8); LYMPH % 9 % (24-48); MEAN CORPUSCULAR HEMOGLOBIN 32 pg (25-35); MEAN CORPUSCULAR HGB CONC 34 g/dL (31-37); MEAN CORPUSCULAR VOLUME 95 fL (79-100); MONO # 0.8 x10^3/uL (0.0-1.1); MONO % 12 % (0-9); NEUT # 4.9 x10^3uL (1.8-7.7); NEUT % 78 % (31-73); PLATELET COUNT 109 x10^3/uL (140-400); RED BLOOD COUNT 3.65 x10^6/uL (3.50-5.40); WHITE BLOOD COUNT 6.3 x10^3/uL (4.0-11.0)
[2021-04-30 13:40] LABS: CALCIUM 8.8 mg/dL (8.5-10.1); CREATININE 1.7 mg/dL (0.6-1.0); GFR 28.6; POTASSIUM 4.2 mmol/L (3.5-5.1)
[2021-04-30 13:46] LABS: ALBUMIN 2.4 g/dL (3.4-5.0); ALBUMIN/GLOBULIN RATIO 0.6 (1.0-1.7); MAGNESIUM 1.3 mg/dL (1.8-2.4); TOTAL BILIRUBIN 0.6 mg/dL (0.2-1.0); TOTAL PROTEIN 6.2 g/dL (6.4-8.2)
[2021-04-30] MEDS ORDERED: MAGNESIUM SULFATE 2GM 50 ML IV ONE (14:15)
[2021-04-30 15:36] LABS: CLARITY,URINE TURBID; COLOR,URINE YELLOW; GLUCOSE,URINE NEG (NEG)
[2021-04-30 15:37] LABS: BACTERIA,URINE MANY /HPF (0-FEW); NITRITE,URINE NEG (NEG); SQUAMOUS EPITHELIAL CELL,UR OCC /LPF; WBC,URINE TNTC /HPF (0-4)
[2021-04-30 16:56] VITALS: BP 125/68
[2021-04-30] MEDS ORDERED: levoFLOXacin PER PHARMACY 1 EACH. MC PRN (18:45)
[2021-04-30 19:20] VITALS: BP 112/67
[2021-04-30] MEDS: METOPROLOL TART IMMED RELEASE 25 MG TABLET. PO SCH (21:00)
[2021-04-30] MEDS ORDERED: levoFLOXacin 500 MG TABLET PO SCH (21:00)
[2021-04-30] MEDS: DOXYCYCLINE HYCLATE 100 MG TABLET PO SCH (21:31)
[2021-05-01 01:38] VITALS: BP 144/63
[2021-05-01 05:23] VITALS: BP 102/60
[2021-05-01] MEDS: LEVOTHYROXINE 50 MCG TABLET PO SCH (06:19)
[2021-05-01 07:20] LABS: BASO % 1 % (0-3); EOS # 0.1 x10^3/uL (0.0-0.7); EOS % 2 % (0-3); HEMATOCRIT 31.1 % (36.0-47.0); HEMOGLOBIN 10.4 g/dL (12.0-15.5); LYMPH # 0.7 x10^3/uL (1.0-4.8); LYMPH % 13 % (24-48); MEAN CORPUSCULAR HEMOGLOBIN 32 pg (25-35); MEAN CORPUSCULAR HGB CONC 34 g/dL (31-37); MEAN CORPUSCULAR VOLUME 95 fL (79-100); MONO # 0.6 x10^3/uL (0.0-1.1); MONO % 13 % (0-9); NEUT # 3.7 x10^3uL (1.8-7.7); NEUT % 72 % (31-73); PLATELET COUNT 108 x10^3/uL (140-400); RED BLOOD COUNT 3.26 x10^6/uL (3.50-5.40); RED CELL DISTRIBUTION WIDTH 13.2 % (11.5-14.5); WHITE BLOOD COUNT 5.1 x10^3/uL (4.0-11.0)
[2021-05-01 07:21] LABS: CALCIUM 8.8 mg/dL (8.5-10.1)
[2021-05-01 08:03] LABS: MAGNESIUM 1.7 mg/dL (1.8-2.4)
[2021-05-01 08:32] LABS: CREATININE 1.5 mg/dL (0.6-1.0); POTASSIUM 4.2 mmol/L (3.5-5.1)
[2021-05-01] MEDS: FERROUS SULFATE 325 MG TABLET. PO SCH (08:58)
[2021-05-01] MEDS: METOPROLOL TART IMMED RELEASE 25 MG TABLET. PO SCH ×2 (08:58→20:50)
[2021-05-01] MEDS: LACTOBACILLUS RHAMNOSUS GG 1 CAPSULE. PO SCH ×2 (08:58→20:55)
[2021-05-01] MEDS: amLODIPine BESYLATE 10 MG TABLET PO SCH (08:58)
[2021-05-01] MEDS: DOXYCYCLINE HYCLATE 100 MG TABLET PO SCH ×2 (08:58→20:55)
[2021-05-01] MEDS: LOSARTAN 50 MG TABLET. PO SCH (08:59)
[2021-05-01] MEDS: PANTOPRAZOLE 40 MG TABLET. PO SCH (08:59)
[2021-05-01] MEDS ORDERED: NON FORMULARY ITEM (Valsartan (Diovan) 1 TAB) PO SCH (09:00)
[2021-05-01 11:13] VITALS: BP 122/75
[2021-05-01 16:15] VITALS: BP 152/69
--- NOTE | 2021-05-01 19:07 | HP ---
DATE OF SERVICE: 05/01/2021 ADMIT DATE: 04/30/2021 HISTORY OF PRESENT ILLNESS: This is an 85-year-old female found at home, lying in her urine. The patient was unable to answer basic questions at the time. The patient was having severe problems with coughing and congestion and the patient was also noted to have severe urinary tract infection. She was unable to take care of herself. The patient also was noted to have COVID-19. However, the patient had just got out of the hospital down in [place] and apparently may have contracted there since she did have it when she went in. Her lifetime summary shows the patient had been negative on the earlier when she was checked prior to going into [facility]. The patient otherwise was confused, slightly disoriented, and noted to have too numerous to count white blood cells in her urine. The patient was admitted for IV antibiotic therapy, further evaluation of her COVID and make further assessment on her change in mental status as well. PAST MEDICAL HISTORY: Includes dementia, chronic atrial fibrillation, hypertension, embolectomy of an artery, GERD, renal disease, hypothyroidism, anxiety, and anemia. FAMILY HISTORY: Noncontributory. ALLERGIES: CODEINE. MEDICATIONS: The patient's medications were reconciled including doxycycline 100 mg a day, simvastatin 20, hydralazine 25, metoprolol 25, Norvasc, valsartan 320, lorazepam, Ativan, furosemide, Protonix 40, Synthroid 50 mcg. SOCIAL HISTORY: No smoking, alcohol, or drug use. She is a FULL CODE. REVIEW OF SYSTEMS: The patient has cough, congestion, some mild problems on urination, incontinence. The patient denies any melena, hematochezia, or hematemesis. Denies chest pain. PHYSICAL EXAMINATION: GENERAL: This is an ill-appearing white female. VITAL SIGNS: Blood pressure 102/60, respiratory rate 18, pulse 70, afebrile, 98 on room air. HEENT: The patient otherwise, the head was atraumatic, normocephalic. Eyes: PERRLA without jaundice. The mouth and throat were normal. NECK: Supple, no JVD or thyromegaly. LUNGS: Diminished, but basically clear. Some crackles in the bases, diminished on the left side. CARDIOVASCULAR: Regular sinus rhythm, S1, S2, without murmur, rub, thrill, or extra heart sounds. ABDOMEN: Soft, nontender, no rebound or guarding. Positive bowel sounds, no hepatosplenomegaly was noted. EXTREMITIES: Without clubbing, cyanosis, nor edema. NEUROLOGIC: The patient was alert and oriented, but basically somewhat confused. She was probably times 1 or 2 at best. The patient was admitted for further evaluation and treatment. LABORATORY DATA: Urine showed too numerous to count white blood cells, a few red blood cells. The patient's hemoglobin and hematocrit 10 and 31. Chemistries; 144, 4.2, BUN and creatinine 32 and 1.7, glucose 100, and albumin 2.4. IMPRESSION: Metabolic encephalopathy, urinary tract infection, pyelonephritis, severe protein malnutrition, chronic kidney disease stage IIIB. KENNEDY DR: Vikki TID: [id number]
[2021-05-01 20:48] VITALS: BP 122/67
[2021-05-01] MEDS: levoFLOXacin 250 MG TABLET PO SCH (20:55)
[2021-05-01] MEDS: LORazepam 0.5 MG TABLET PO PRN (20:55)
[2021-05-02 00:22] VITALS: BP 121/71
[2021-05-02] MEDS: LEVOTHYROXINE 50 MCG TABLET PO SCH (05:36)
[2021-05-02 06:30] VITALS: BP 133/70
[2021-05-02] MEDS: LOSARTAN 50 MG TABLET. PO SCH (08:18)
[2021-05-02] MEDS: amLODIPine BESYLATE 10 MG TABLET PO SCH (08:18)
[2021-05-02] MEDS: PANTOPRAZOLE 40 MG TABLET. PO SCH (08:18)
[2021-05-02] MEDS: LACTOBACILLUS RHAMNOSUS GG 1 CAPSULE. PO SCH ×2 (08:18→20:06)
[2021-05-02] MEDS: FERROUS SULFATE 325 MG TABLET. PO SCH (08:19)
[2021-05-02] MEDS: METOPROLOL TART IMMED RELEASE 25 MG TABLET. PO SCH ×2 (09:00→20:07)
[2021-05-02] MEDS ORDERED: DICLOFENAC SODIUM 1% TOPICAL GEL 100GM TUBE. TP SCH (10:00)
[2021-05-02] MEDS: DICLOFENAC SODIUM 1% TOPICAL GEL 100GM TUBE. TP SCH ×3 (10:23→20:06)
[2021-05-02 11:03] VITALS: BP 93/57
--- NOTE | 2021-05-02 15:38 | EKG ---
[address] [address] Test Date: 2021-05-02 Test Time: 15:06:12 Pat Name: THALIA WOODWARD Department: Room: 107 A Gender: F Heating Unit Installer: : 1935 Requested By: JERICHO NUÑEZ Order Number: [id number] Reading MD: Mir Jones Measurements Intervals [place] Rate: 63 P: [place]: QRS: 80 QRSD: 80 T: 17 QT: 416 QTc: 429 Interpretive Statements ATRIAL FIBRILLATION Electronically Signed On 05-02-2021 19:21:14 SLEEVE BOTTOM FELLER by Mir Jones
[2021-05-02 15:51] VITALS: BP 128/68
[2021-05-02] MEDS: IV NORMAL SALINE 1,000ML 1,000 ML IV SCH (17:31)
[2021-05-02 19:33] VITALS: BP 112/54
[2021-05-02] MEDS: levoFLOXacin 250 MG TABLET PO SCH (20:06)
[2021-05-02] MEDS: LORazepam 0.5 MG TABLET PO PRN (20:06)
[2021-05-02 23:14] VITALS: BP 138/62
--- NOTE | 2021-05-02 23:18 | PN ---
SUBJECTIVE: An 85-year-old female in with metabolic encephalopathy, COVID-19 respiratory distress and also COVID-19 pneumonia. The patient also has bad urinary tract infection, possible pyelonephritis. Awaiting back for culture sensitivities on that. The patient is on Levaquin and we will switch over on to Rocephin as well for her pneumonic process. The patient seems to be doing much better. Overall, she seems to be in good spirits, except for degenerative changes to her knees and hand and the patient otherwise outside of pain in her hand and her knees seems to be doing relatively well. OBJECTIVE: LUNGS: Diminished, primarily in the bases. CARDIOVASCULAR: Regular sinus rhythm, S1, S2 with a 2/6 systolic ejection murmur. ABDOMEN: Soft, nontender. EXTREMITIES: No clubbing, cyanosis or edema. Marked degenerative changes noted to the knees, marked hypertrophy, right knee hurts worse than that of the left, but both of them have significant arthritic changes. Hands also slightly swollen in the first metacarpal of the right hand, looks to be some swelling and heat, possible arthritic flare up. Otherwise, will continue on IV antibiotic therapy. IMPRESSION: COVID-19 pneumonia, respiratory distress, metabolic encephalopathy, pyelonephritis, moderate protein malnutrition, degenerative arthritis of the knees, anemia of chronic disease. ISIDRO/BILLY/LALO DR: ISIDRO/aydin TID: [id number]
[2021-05-03 05:06] VITALS: BP 145/75
[2021-05-03] MEDS: LEVOTHYROXINE 50 MCG TABLET PO SCH (05:55)
[2021-05-03] MEDS: IV NORMAL SALINE 1,000ML 1,000 ML IV SCH ×2 (05:55→20:14)
[2021-05-03 06:31] LABS: BASO % 1 % (0-3); CALCIUM 9.1 mg/dL (8.5-10.1); CREATININE 1.5 mg/dL (0.6-1.0); EOS # 0.1 x10^3/uL (0.0-0.7); EOS % 3 % (0-3); LYMPH # 0.8 x10^3/uL (1.0-4.8); LYMPH % 19 % (24-48); MEAN CORPUSCULAR HEMOGLOBIN 32 pg (25-35); MEAN CORPUSCULAR HGB CONC 33 g/dL (31-37); MEAN CORPUSCULAR VOLUME 95 fL (79-100); MONO # 0.6 x10^3/uL (0.0-1.1); MONO % 13 % (0-9); NEUT # 2.7 x10^3uL (1.8-7.7); NEUT % 64 % (31-73); PLATELET COUNT 136 x10^3/uL (140-400); POTASSIUM 4.2 mmol/L (3.5-5.1); RED BLOOD COUNT 3.16 x10^6/uL (3.50-5.40); RED CELL DISTRIBUTION WIDTH 13.1 % (11.5-14.5); WHITE BLOOD COUNT 4.2 x10^3/uL (4.0-11.0)
[2021-05-03] MEDS: PANTOPRAZOLE 40 MG TABLET. PO SCH (09:26)
[2021-05-03] MEDS: LACTOBACILLUS RHAMNOSUS GG 1 CAPSULE. PO SCH ×2 (09:26→21:07)
[2021-05-03] MEDS: LOSARTAN 50 MG TABLET. PO SCH (09:26)
[2021-05-03] MEDS: FERROUS SULFATE 325 MG TABLET. PO SCH (09:26)
[2021-05-03] MEDS: DICLOFENAC SODIUM 1% TOPICAL GEL 100GM TUBE. TP SCH ×3 (09:27→21:08)
[2021-05-03] MEDS: amLODIPine BESYLATE 10 MG TABLET PO SCH (09:27)
[2021-05-03 11:15] VITALS: BP 151/77
[2021-05-03] MEDS: METOPROLOL TART IMMED RELEASE 25 MG TABLET. PO SCH ×2 (12:25→21:00)
[2021-05-03 15:22] VITALS: BP 125/66
[2021-05-03 20:03] VITALS: BP 128/83
[2021-05-03] MEDS: levoFLOXacin 250 MG TABLET PO SCH (21:07)
[2021-05-03] MEDS: LORazepam 0.5 MG TABLET PO PRN (21:07)
--- NOTE | 2021-05-03 23:07 | PN ---
SUBJECTIVE: The patient in with pneumonia, pyelonephritis, renal tube grew E. coli and Proteus mirabilis out of her urine. She is also COVID-19 positive. She seems to be doing relatively well, a little bit better. OBJECTIVE: VITAL SIGNS: Blood pressure 125/66, respirations 16, pulse 50, afebrile, 93 on room air. GENERAL: The patient is alert and oriented, baseline. LUNGS: Diminished, poor movement of air, but basically clear. CARDIOVASCULAR: Regular sinus rhythm. ABDOMEN: Soft, nontender. NEUROLOGIC: The patient is still very weak receiving PT, OT needs a walker to continue to walk. LABORATORY DATA: The patient's potassium stable at 4.2, 139, BUN and creatinine 29 and 1.5. Continue to monitor on that. PLAN: Continue on antibiotics, adjusting those and make further evaluation. Also receiving IV fluids. IMPRESSION: COVID-19 pneumonia, sepsis, respiratory distress, metabolic encephalopathy, pyelonephritis, moderate protein malnutrition, degenerative arthritis of the knees, anemia of chronic disease, generalized weakness of the muscles of the legs with gait disturbance. TRANG DR: Vikki TID: [id number]
[2021-05-03 23:26] VITALS: BP 139/68
[2021-05-04] MEDS: LEVOTHYROXINE 50 MCG TABLET PO SCH (05:54)
[2021-05-04 06:25] VITALS: BP 120/76
[2021-05-04] MEDS: LACTOBACILLUS RHAMNOSUS GG 1 CAPSULE. PO SCH ×2 (08:11→21:01)
[2021-05-04] MEDS: FERROUS SULFATE 325 MG TABLET. PO SCH (08:11)
[2021-05-04] MEDS: PANTOPRAZOLE 40 MG TABLET. PO SCH (08:11)
[2021-05-04] MEDS: LOSARTAN 50 MG TABLET. PO SCH (08:12)
[2021-05-04] MEDS: amLODIPine BESYLATE 10 MG TABLET PO SCH (08:12)
[2021-05-04] MEDS: DICLOFENAC SODIUM 1% TOPICAL GEL 100GM TUBE. TP SCH ×3 (09:00→21:00)
[2021-05-04] MEDS: METOPROLOL TART IMMED RELEASE 25 MG TABLET. PO SCH ×2 (09:00→21:00)
[2021-05-04 10:36] VITALS: BP 159/74
[2021-05-04] MEDS: IV NORMAL SALINE 1,000ML 1,000 ML IV SCH (10:55)
[2021-05-04 16:32] VITALS: BP 132/63
[2021-05-04 20:35] VITALS: BP 170/80
[2021-05-04] MEDS: levoFLOXacin 250 MG TABLET PO SCH (21:01)
[2021-05-04] MEDS ORDERED: amLODIPine BESYLATE 5 MG TABLET PO ONE (22:00)
[2021-05-04 23:54] VITALS: BP 169/70
--- NOTE | 2021-05-05 04:34 | PN ---
DATE: 05/04/2021 SUBJECTIVE: The patient is an 85-year-old female in with COVID-19 pneumonia. The patient seems to be making relatively good progress along with her generalized weakness, which she is receiving excellent physical therapy and so forth. The patient's basically main complaint is that of generalized weakness. Her urine also grew out 2 different pathogenic bacteria, E. coli and Proteus mirabilis. The patient otherwise is making fair progress. OBJECTIVE: VITAL SIGNS: Blood pressure 170/80 (NC), respiratory rate 18, pulse 72 ____, and afebrile and 95% on room air. GENERAL: The patient is alert, baseline. Speech is spontaneous. LUNGS: Diminished. CARDIOVASCULAR: Regular sinus rhythm. ABDOMEN: Soft, nontender. EXTREMITIES: No clubbing, cyanosis, nor edema. NEUROLOGIC: The patient seems to be alert and making fairly good progress overall with her situation. IMPRESSION: COVID-19 pneumonia, urinary tract infection with Proteus and Escherichia coli bacteria. Recent hospitalization for dehydration and type 2 diabetes ____. PLAN: The patient will continue to be monitored carefully. Continue with PT, OT, and possible placement in a facility for continued rehabilitation. Also, she has chronic kidney disease stage 3A and also severe protein malnutrition. ISIDRO/BILLY/AINBAL DR: ISIDRO/aydin TID: [id number]
[2021-05-05] MEDS: LEVOTHYROXINE 50 MCG TABLET PO SCH (05:47)
[2021-05-05 05:52] VITALS: BP 156/62
[2021-05-05] MEDS: LOSARTAN 50 MG TABLET. PO SCH ×2 (08:13→08:47)
[2021-05-05] MEDS: amLODIPine BESYLATE 10 MG TABLET PO SCH (08:14)
[2021-05-05] MEDS: PANTOPRAZOLE 40 MG TABLET. PO SCH (08:14)
[2021-05-05] MEDS: LACTOBACILLUS RHAMNOSUS GG 1 CAPSULE. PO SCH ×2 (08:14→21:08)
[2021-05-05] MEDS: FERROUS SULFATE 325 MG TABLET. PO SCH (08:14)
[2021-05-05] MEDS: FUROSEMIDE 20 MG/2 ML VIAL IVP SCH (08:15)
[2021-05-05] MEDS: DICLOFENAC SODIUM 1% TOPICAL GEL 100GM TUBE. TP SCH ×3 (08:15→21:00)
[2021-05-05] MEDS: FLUTICASONE 50MCG/NASAL SPRAY 16GM BOTTLE. NS SCH (08:16)
[2021-05-05] MEDS: METOPROLOL TART IMMED RELEASE 25 MG TABLET. PO SCH ×2 (08:50→21:08)
[2021-05-05] MEDS: amLODIPine BESYLATE 5 MG TABLET PO SCH (08:51)
[2021-05-05 11:00] VITALS: BP 145/70
[2021-05-05 13:39] LABS: CALCIUM 9.7 mg/dL (8.5-10.1); CREATININE 1.4 mg/dL (0.6-1.0); GFR 35.7; POTASSIUM 4.5 mmol/L (3.5-5.1)
[2021-05-05 15:00] VITALS: BP 133/77
[2021-05-05 20:27] VITALS: BP 122/72
[2021-05-05] MEDS: LORazepam 0.5 MG TABLET PO PRN (21:09)
[2021-05-05] MEDS: levoFLOXacin 250 MG TABLET PO SCH (21:11)
[2021-05-05 23:02] VITALS: BP 137/65
--- NOTE | 2021-05-06 | PN ---
NO DICTATION CAITLIN DR: Vikki TID: [id number]
--- NOTE | 2021-05-06 00:06 | PN ---
DATE: 05/05/2021 SUBJECTIVE: Kirby the patient in with COVID-19 pneumonia, failure to thrive, pyelonephritis. The patient with generalized weakness, receiving PT, OT, gradually gaining some strength back. OBJECTIVE: VITAL SIGNS: Blood pressure 133/77, respiratory rate 20, pulse 60, afebrile. GENERAL: The patient is doing much better overall. The patient is alert and oriented. LUNGS: Diminished throughout, poor movement of air, but clear. CARDIOVASCULAR: Regular sinus rhythm. ABDOMEN: Soft, nontender, no rebound or guarding. Positive bowel sounds. LABORATORY DATA: The patient's labs looked markedly improved. Kidney function is improved. Creatinine went from 1.7, down to 1.4. The patient otherwise making good progress overall with present antibiotics. IMPRESSION: COVID-19 pneumonia, generalized weakness, urinary tract infection, pyelonephritis. PLAN: To continue with rehabilitation and try to convince her to go to a nursing facility and make further rehabilitation there. CAITLIN DR: Vikki TID: [id number]
[2021-05-06 05:32] VITALS: BP 132/62
[2021-05-06 06:42] LABS: BASO % 1 % (0-3); EOS # 0.1 x10^3/uL (0.0-0.7); EOS % 3 % (0-3); HEMATOCRIT 30.3 % (36.0-47.0); HEMOGLOBIN 10.1 g/dL (12.0-15.5); LYMPH # 0.7 x10^3/uL (1.0-4.8); LYMPH % 18 % (24-48); MEAN CORPUSCULAR HEMOGLOBIN 32 pg (25-35); MEAN CORPUSCULAR HGB CONC 33 g/dL (31-37); MEAN CORPUSCULAR VOLUME 96 fL (79-100); MONO # 0.6 x10^3/uL (0.0-1.1); MONO % 16 % (0-9); NEUT # 2.3 x10^3uL (1.8-7.7); NEUT % 62 % (31-73); PLATELET COUNT 171 x10^3/uL (140-400); RED BLOOD COUNT 3.16 x10^6/uL (3.50-5.40); RED CELL DISTRIBUTION WIDTH 13.1 % (11.5-14.5); WHITE BLOOD COUNT 3.7 x10^3/uL (4.0-11.0)
[2021-05-06 06:58] LABS: CALCIUM 9.3 mg/dL (8.5-10.1); CREATININE 1.2 mg/dL (0.6-1.0); GFR 42.7; POTASSIUM 4.3 mmol/L (3.5-5.1)
[2021-05-06] MEDS: LEVOTHYROXINE 50 MCG TABLET PO SCH (07:01)
[2021-05-06] MEDS: FUROSEMIDE 20 MG/2 ML VIAL IVP SCH (08:09)
[2021-05-06] MEDS: amLODIPine BESYLATE 5 MG TABLET PO SCH (08:09)
[2021-05-06] MEDS: FERROUS SULFATE 325 MG TABLET. PO SCH (08:09)
[2021-05-06] MEDS: PANTOPRAZOLE 40 MG TABLET. PO SCH (08:10)
[2021-05-06] MEDS: LACTOBACILLUS RHAMNOSUS GG 1 CAPSULE. PO SCH ×2 (08:10→20:22)
[2021-05-06] MEDS: amLODIPine BESYLATE 10 MG TABLET PO SCH (08:10)
[2021-05-06] MEDS: LOSARTAN 50 MG TABLET. PO SCH ×2 (08:10→09:00)
[2021-05-06] MEDS: FLUTICASONE 50MCG/NASAL SPRAY 16GM BOTTLE. NS SCH (09:00)
[2021-05-06] MEDS: DICLOFENAC SODIUM 1% TOPICAL GEL 100GM TUBE. TP SCH ×3 (09:00→20:31)
[2021-05-06 11:17] VITALS: BP 113/57
[2021-05-06] MEDS: METOPROLOL TART IMMED RELEASE 25 MG TABLET. PO SCH ×2 (11:28→20:31)
[2021-05-06 15:45] VITALS: BP 124/56
--- NOTE | 2021-05-06 16:48 | RAD ---
EXAM: CHEST ONE VIEW. HISTORY: Pneumonia. COMPARISON: 04/30/2021. FINDINGS: A frontal view of the chest is obtained. An air-fluid level in the left base is consistent with a large hiatal hernia versus elevation of the left hemidiaphragm. Interstitial opacities in the left greater than right bases are consistent with a telectasis. There is a calcified granuloma in the right base. There is no pneumothorax or clear pleur al effusion. The heart is mildly enlarged. There are atherosclerotic calcifications of the aorta. IMPRESSION: 1. Bibasilar atelectasis. Correlate to exclude mild volume overload. 2. Large hiatal hernia versus elevation of the left hemidiaphragm. Electronically signed by: Viola Perez MD (05/06/2021 4:45 PM) [id number]
[2021-05-06] MEDS: levoFLOXacin 250 MG TABLET PO SCH (20:24)
[2021-05-06 20:45] VITALS: BP 129/61
--- NOTE | 2021-05-06 21:37 | PN ---
DATE: 05/06/2021 SUBJECTIVE: The patient is in with COVID-19 pneumonia, generalized weakness, change in mental status, metabolic encephalopathy, seems to be doing a little better. Seems to have a better outlook and seems to be stronger overall. OBJECTIVE: VITAL SIGNS: Blood pressure 113/60, respiratory rate 20, pulse 60, afebrile, 92 on room air, which is a marked improvement. GENERAL: The patient is alert and oriented, baseline for her. LUNGS: Diminished throughout. She is extremely hard of hearing. CARDIOVASCULAR: Regular sinus rhythm. EXTREMITIES: No clubbing, cyanosis or edema. NEUROLOGIC: Baseline. LABORATORY DATA: The patient's white count 3, hemoglobin 10, basically stable. Sodium and potassium 139 and 4.3, BUN and creatinine ___ and 1.2. Continue to monitor the patient and continue to make adjustments on her medications as indicated. IMPRESSION: COVID-19 pneumonia, generalized weakness, urinary tract infection, pyelonephritis, severe protein malnutrition, chronic kidney disease, stage IIIA. Continue on present drug regimen. CAITLIN DR: Vikki TID: [id number]
[2021-05-07 00:12] VITALS: BP 133/77
[2021-05-07] MEDS: LEVOTHYROXINE 50 MCG TABLET PO SCH (06:01)
[2021-05-07 06:12] VITALS: BP 124/71
[2021-05-07] MEDS: FERROUS SULFATE 325 MG TABLET. PO SCH (08:10)
[2021-05-07] MEDS: LACTOBACILLUS RHAMNOSUS GG 1 CAPSULE. PO SCH ×2 (08:10→21:00)
[2021-05-07] MEDS: PANTOPRAZOLE 40 MG TABLET. PO SCH (08:10)
[2021-05-07] MEDS: LOSARTAN 50 MG TABLET. PO SCH ×2 (08:11→09:00)
[2021-05-07] MEDS: amLODIPine BESYLATE 5 MG TABLET PO SCH (08:12)
[2021-05-07] MEDS: amLODIPine BESYLATE 10 MG TABLET PO SCH (08:12)
[2021-05-07] MEDS: FLUTICASONE 50MCG/NASAL SPRAY 16GM BOTTLE. NS SCH (08:14)
[2021-05-07] MEDS: DICLOFENAC SODIUM 1% TOPICAL GEL 100GM TUBE. TP SCH ×3 (08:14→21:00)
[2021-05-07] MEDS: FUROSEMIDE 20 MG/2 ML VIAL IVP SCH (08:14)
[2021-05-07 11:54] VITALS: BP 94/66
[2021-05-07] MEDS: METOPROLOL TART IMMED RELEASE 25 MG TABLET. PO SCH (12:26)
[2021-05-07 17:12] VITALS: BP 110/61
[2021-05-07 19:20] VITALS: BP 109/61
[2021-05-07] MEDS: levoFLOXacin 250 MG TABLET PO SCH (20:28)
--- NOTE | 2021-05-07 21:16 | PN ---
SUBJECTIVE: An 85-year-old female with pneumonia, COVID-19 and respiratory distress. The patient is resting fairly comfortably, making fairly good progress. Still needs continued rehabilitation. Blood pressure on the low side. We will go ahead and hold most of her blood pressure medication. She will be probably transferred to [place] tomorrow for further rehab care. The patient otherwise is resting fairly comfortably. She is without complaint and will continued to be monitored carefully on her blood pressure. OBJECTIVE: VITAL SIGNS: Otherwise, blood pressure presently 95/60, respiratory rate 20, pulse 75, afebrile, on room air at 96. GENERAL: The patient is alert and oriented. Speech fluent, spontaneous, baseline. LUNGS: Diminished throughout, poor movement of air. CARDIOVASCULAR: Regular sinus rhythm. ABDOMEN: Soft, nontender. EXTREMITIES: No clubbing, cyanosis or edema. NEUROLOGIC: Baseline for her. IMPRESSION: COVID-19 pneumonia, hypotension, urinary tract infection, pyelonephritis, generalized weakness, mild dementia. PLAN: Continue to monitor the patient accordingly, make further evaluation on her per those results and monitor her blood pressure. NUNO DR: Vikki TID: [id number]
[2021-05-08] MEDS: LEVOTHYROXINE 50 MCG TABLET PO SCH (05:30)
[2021-05-08 05:44] VITALS: BP 132/74
[2021-05-08 07:56] LABS: BASO % 1 % (0-3); EOS # 0.1 x10^3/uL (0.0-0.7); EOS % 2 % (0-3); HEMATOCRIT 33.2 % (36.0-47.0); HEMOGLOBIN 10.9 g/dL (12.0-15.5); LYMPH % 23 % (24-48); MEAN CORPUSCULAR HEMOGLOBIN 32 pg (25-35); MEAN CORPUSCULAR HGB CONC 33 g/dL (31-37); MEAN CORPUSCULAR VOLUME 96 fL (79-100); MONO # 0.7 x10^3/uL (0.0-1.1); MONO % 15 % (0-9); NEUT # 2.6 x10^3uL (1.8-7.7); NEUT % 59 % (31-73); PLATELET COUNT 213 x10^3/uL (140-400); RED BLOOD COUNT 3.47 x10^6/uL (3.50-5.40); WHITE BLOOD COUNT 4.5 x10^3/uL (4.0-11.0)
[2021-05-08 08:09] LABS: ALBUMIN 2.4 g/dL (3.4-5.0); ALBUMIN/GLOBULIN RATIO 0.6 (1.0-1.7); CALCIUM 9.7 mg/dL (8.5-10.1); CREATININE 1.5 mg/dL (0.6-1.0); POTASSIUM 4.6 mmol/L (3.5-5.1); TOTAL BILIRUBIN 0.3 mg/dL (0.2-1.0); TOTAL PROTEIN 6.6 g/dL (6.4-8.2)
[2021-05-08] MEDS: FLUTICASONE 50MCG/NASAL SPRAY 16GM BOTTLE. NS SCH (09:00)
[2021-05-08] MEDS: DICLOFENAC SODIUM 1% TOPICAL GEL 100GM TUBE. TP SCH ×2 (09:00→14:00)
[2021-05-08] MEDS ORDERED: METOPROLOL TART IMMED RELEASE 25 MG TABLET. PO SCH (09:00)
[2021-05-08] MEDS: LOSARTAN 50 MG TABLET. PO SCH (09:59)
[2021-05-08] MEDS: LACTOBACILLUS RHAMNOSUS GG 1 CAPSULE. PO SCH (09:59)
[2021-05-08] MEDS: PANTOPRAZOLE 40 MG TABLET. PO SCH (10:00)
[2021-05-08] MEDS: FERROUS SULFATE 325 MG TABLET. PO SCH (10:00)
[2021-05-08 11:00] VITALS: BP 135/61
--- NOTE | 2021-05-08 12:20 | DISCH ---
DISCHARGE ORDERS DISCHARGE DATE: May 08, 2021 FINAL DIAGNOSIS pyelonephritis UTI growing E-coli and proteus mirabilis COVID with pneumonia acute and chronic kidney injury CONDITION AT DISCHARGE: Stable Code Status: Full SNF STAY <30 DAYS: Yes HOSPICE: No HOSPICE EVALUATE & TREAT: No ADMIT TO LTAC: No POST DISCHARGE ORDERS: ACTIVITY ORDERS: Activity as tolerated WEIGHT BEARING STATUS: No restrictions DIET AFTER DISCHARGE: Cardiac CHECKS AFTER DISCHARGE: CHECKS AFTER DISCHARGE: Check blood press - daily, Weigh Yourself Daily DISCHARGE MEDICATIONS: Home Meds Active Scripts Doxycycline Hyclate (DOXYCYCLINE HYCLATE) 100 Mg Capsule, 1 CAP PO BID for infection, #20 CAP Prov:JERICHO NUÑEZ MD 04/17/19 Lorazepam (ATIVAN ) 0.5 Mg Tablet, 0.5 MG PO PRN Q8HRS PRN for ANXIETY / AGITATION/sleep, #30 TAB Prov:JERICHO NUÑEZ MD 04/17/19 Hydralazine Hcl (HYDRALAZINE HCL) 25 Mg Tablet, 25 MG PO TID for blood pressure for 30 Days, #90 TAB 3 Refills Prov:JERICHO NUÑEZ MD 04/17/19 Ferrous Sulfate (FEOSOL) 325 Mg Tablet, 325 MG PO DAILYWBKFT for anemia for 90 Days, #90 TAB 3 Refills Prov:JERICHO NUÑEZ MD 04/17/19 Levothyroxine Sodium (SYNTHROID) 50 Mcg Tablet, 50 MCG PO DAILY06 for thyroid replacement for 90 Days, #90 TAB 3 Refills Prov:JERICHO NUÑEZ MD 04/17/19 Pantoprazole Sodium (PANTOPRAZOLE SODIUM) 40 Mg Tablet.dr, 40 MG PO DAILYAC for GERD for 30 Days, #30 TAB 6 Refills Prov:JERICHO NUÑEZ MD 04/17/19 Furosemide (FUROSEMIDE) 40 Mg Tablet, 40 MG PO DAILY for edema for 30 Days, #30 TAB 3 Refills Prov:JERICHO NUÑEZ MD 04/17/19 Metoprolol Tartrate (METOPROLOL TARTRATE) 25 Mg Tablet, 12.5 MG PO BID for blood pressure for 30 Days, #30 TAB 3 Refills Prov:JERICHO NUÑEZ MD 04/17/19 Reported Medications Simvastatin (SIMVASTATIN) 20 Mg Tablet, 1 TAB PO QHS for ., #30 TAB 5 Refills 04/14/19 Valsartan (DIOVAN) 320 Mg Tablet, 1 TAB PO DAILY for ., #90 TAB 1 Refill 04/14/19 Amlodipine Besylate (NORVASC) 10 Mg Tablet, 1 TAB PO DAILY for BP, #30 TAB 5 Refills 04/14/19 JERICHO NUÑEZ MD May 08, 2021 12:20
[2021-05-08] MEDS ORDERED: LORazepam 0.5 MG TABLET PO ONE (14:00)
== END 2021-05-08 15:10 | DRG 871 ==
LOC: ER 12:11 → ER HOLD 14:17 → 1 SOUTH 14:48
PROVIDERS: ADMIT Family Medicine; ATTEND Family Medicine
DX: A41.9 Sepsis, unspecified organism (principal); U07.1 COVID-19; E43 Unspecified severe protein-calorie malnutrition; G93.41 Metabolic encephalopathy; J12.82 Pneumonia due to coronavirus disease 2019; I13.0 Hypertensive heart and chronic kidney disease with heart failure and stage 1 through stage 4 chronic kidney disease, or unspecified chronic kidney disease; I48.20 Chronic atrial fibrillation, unspecified; N12 Tubulo-interstitial nephritis, not specified as acute or chronic; I50.9 Heart failure, unspecified; B96.4 Proteus (mirabilis) (morganii) as the cause of diseases classified elsewhere; D63.8 Anemia in other chronic diseases classified elsewhere; E03.9 Hypothyroidism, unspecified; E11.22 Type 2 diabetes mellitus with diabetic chronic kidney disease; R31.9 Hematuria, unspecified; E83.42 Hypomagnesemia; F03.90 Unspecified dementia, unspecified severity, without behavioral disturbance, psychotic disturbance, mood disturbance, and anxiety; M17.0 Bilateral primary osteoarthritis of knee; N18.32 Chronic kidney disease, stage 3b; R62.7 Adult failure to thrive; F41.9 Anxiety disorder, unspecified; K21.9 Gastro-esophageal reflux disease without esophagitis; Z60.2 Problems related to living alone; Z88.5 Allergy status to narcotic agent; Z68.23 Body mass index [BMI] 23.0-23.9, adult
CPT/HCPCS: 36415; 71045; 80048; 80053; 81001; 82550; 82947; 83735; 84484; 85025; 87077; 87086; 87186; 87426; 93005; 96365; J0696; J3475; U0003; 97110; 97530; 97535; 99285-25; J7030